=== PATIENT | male | born 1950 | race Caucasian/White ===

== ENCOUNTER 2019-02-02 08:45 | Outpatient (CLI) | payer MEDICARE, OTHER | END 2019-02-02 08:46 | disposition critical access hospital (66) | LOC: EMS 08:45 | PROVIDERS: ATTEND Surgery | DX: R61 Generalized hyperhidrosis (principal); R53.1 Weakness; R47.9 Unspecified speech disturbances | CPT/HCPCS: A0425; A0427 ==

== ENCOUNTER 2019-02-02 09:04 | Observation (INO) | payer MEDICARE, OTHER ==
--- NOTE | 2019-02-02 09:27 | CT Report ---
Reason: acute confusion, with weakness Procedure Date: 02/02/2019 Accession Number: [id number] / [id number] Procedure: CT - Head W/O Stroke Protocol CPT Code: FULL RESULT: EXAM: CT HEAD EXAM DATE: 02/02/2019 09:18 AM. CLINICAL HISTORY: Acute confusion, with weakness. COMPARISON: None. TECHNIQUE: Multiaxial CT images were obtained from the foramen magnum to the vertex. Reformats: Sagittal and coronal. IV contrast: None. In accordance with CT protocol optimization, one or more of the following dose reduction techniques were utilized for this exam: automated exposure control, adjustment of mA and/or KV based on patient size, or use of iterative reconstructive technique. FINDINGS: Parenchyma: No intraparenchymal hemorrhage. No evidence of mass, midline shift, or CT findings of acute infarction. Kunz-white differentiation is distinct. Extraaxial Spaces: Normal for age. No subdural or epidural collections identified. Ventricles: Normal in size and position. Sinuses and Orbits: Imaged paranasal sinuses, orbits, and mastoids show no significant abnormality. Bones: No evidence of fracture or calvarial defect. Other: None. IMPRESSION: No intracranial hemorrhage. ASPECTS 10 RADIA The critical test notification system was initiated by Dr. Mikhail Maya at 09:25 AM on 02/02/2019. The above critical test findings were discussed with Roosevelt Vidal by Dr. Mikhail Maya at 09:30 AM on 02/02/2019.
--- NOTE | 2019-02-02 09:28 | ED Physician Documentation ---
PD HPI FOCAL NEURO - Stated complaint Stated Complaint: CVA - Chief complaint Chief Complaint: Neuro - Additional information Additional information: 5-year-old male was brought to the emergency department for evaluation of a unresponsive episode and inability to speak. The patient was last seen normal at 7 AM by his . The patient's went to take a shower and when she came out of the shower found the patient unresponsive, globally weak and unable to speak and diaphoretic. The history the patient is limited secondary to the acute presentation and inability to speak. The patient is following simple commands. EMS did find the patient to have a blood sugar of 40 and was given an amp of D50. The patient's blood sugar now is in the 200s. Review of Systems Unable to obtain: Confused PD PAST MEDICAL HISTORY - Present Medications Home Medications: Ambulatory Orders Medication Instructions Recorded Confirmed Hydroxychloroquine [Plaquenil] 200 mg PO DAILY 02/02/19 02/02/19 Metoprolol Succinate 50 mg PO DAILY 02/02/19 02/02/19 dilTIAZem HCl [Diltiazem 24Hr Cd] 240 mg PO DAILY 02/02/19 02/02/19 hydroCHLOROthiazide [Hydrodiuril] 12.5 mg PO DAILY 02/02/19 02/02/19 - Allergies Allergies/Adverse Reactions: Allergies Allergy/AdvReac Type Severity Reaction Status Date / Time Unable to Assess Allergy Verified 02/02/19 09:21 PD ED PE NORMAL - General General: Other (The patient appears alert, follows very simple commands and moves all 4 extremities, But is significantly confused and altered) - HEENT HEENT: Atraumatic, PERRL, EOMI, Ears normal, Moist mucous membranes - Cardiac Cardiac: RRR, Strong equal pulses - Respiratory Respiratory: No respiratory distress - Abdomen Abdomen: Soft, Non tender - Back Back: No CVA TTP - Derm Derm: Normal color - Extremities Extremities: No deformity - Neuro Neuro: Other (The patient's alert, follows very simple commands but gets significantly confused and has trouble following any multistep command. The patient is nonverbal on initial assessment. The patient is weak in the global upper and lower extremities. No focal area of deficit. The face is symmetric and tongue is midline) Results - Vitals Vitals: Vital Signs - 24 hr 02/02/19 02/02/19 02/02/19 09:05 09:18 09:30 Temperature Heart Rate 52 L 55 L 51 L Respiratory 16 16 16 Rate Blood Pressure 152/94 H 154/82 H 150/80 H O2 Saturation 99 98 98 02/02/19 02/02/19 02/02/19 09:45 10:00 10:13 Temperature 35.9 C L Heart Rate 55 L 52 L 56 L Respiratory 16 16 12 Rate Blood Pressure 157/82 H 162/90 H 162/91 H O2 Saturation 100 99 100 02/02/19 02/02/19 02/02/19 10:37 11:58 13:07 Temperature 36.2 C L 36.4 C L Heart Rate 65 71 Respiratory 16 16 16 Rate Blood Pressure 158/99 H 143/120 H 157/96 H O2 Saturation 100 100 Oxygen O2 Source Room air - EKG (time done) 09:22 Rate: Rate (enter#) Rhythm: Sinus bradycardia Intervals: Normal IL, QRS normal QRS: Normal Ischemia: Non specific changes - Labs Labs: Laboratory Tests 02/02/19 02/02/19 02/02/19 09:20 09:25 09:25 WBC 10.6 RBC 4.32 L Hgb 14.8 Hct 42.0 MCV 97.3 H MCH 34.2 H MCHC 35.2 RDW 13.2 Plt Count 260 MPV 6.0 L Neut # (Auto) 9.5 H Lymph # (Auto) 0.4 L [place] # (Auto) 0.5 Eos # (Auto) 0.1 Baso # (Auto) 0.1 Absolute Nucleated RBC 0.00 Nucleated RBC % 0.0 PT 12.9 H INR 1.2 APTT 32.2 VBG pH VBG pCO2 VBG pO2 VBG HCO3 VBG Total CO2 VBG O2 Saturation VBG Base Excess VBG Total Hgb VBG Oxyhemoglobin VBG Carboxyhemoglobin VBG Methemoglobin Sodium Potassium Chloride Carbon Dioxide Anion Gap BUN Creatinine Estimated GFR (MDRD) Glucose POC Whole Bld Glucose 165 H Calcium Magnesium Total Bilirubin AST ALT Alkaline Phosphatase Ammonia Total Creatine Kinase Troponin I Total Protein Albumin Globulin Albumin/Globulin Ratio Lipase TSH Salicylates Acetaminophen Ethyl Alcohol 02/02/19 02/02/19 02/02/19 09:25 09:25 09:25 WBC RBC Hgb Hct MCV MCH MCHC RDW Plt Count MPV Neut # (Auto) Lymph # (Auto) [place] # (Auto) Eos # (Auto) Baso # (Auto) Absolute Nucleated RBC Nucleated RBC % PT INR APTT VBG pH VBG pCO2 VBG pO2 VBG HCO3 VBG Total CO2 VBG O2 Saturation VBG Base Excess VBG Total Hgb VBG Oxyhemoglobin VBG Carboxyhemoglobin VBG Methemoglobin Sodium 126 L Potassium 3.8 Chloride 87 L Carbon Dioxide 22 Anion Gap 17.0 H BUN 9 Creatinine 0.8 Estimated GFR (MDRD) 96 Glucose 182 H POC Whole Bld Glucose Calcium 8.6 Magnesium Total Bilirubin 1.3 H AST 32 ALT 16 Alkaline Phosphatase 61 Ammonia Total Creatine Kinase 94 Troponin I < 0.04 Total Protein 7.0 Albumin 4.0 Globulin 3.0 Albumin/Globulin Ratio 1.3 Lipase 23 TSH 1.19 Salicylates < 6.0 Acetaminophen < 10 L Ethyl Alcohol 92.1 02/02/19 02/02/19 02/02/19 09:25 09:25 09:25 WBC RBC Hgb Hct MCV MCH MCHC RDW Plt Count MPV Neut # (Auto) Lymph # (Auto) [place] # (Auto) Eos # (Auto) Baso # (Auto) Absolute Nucleated RBC Nucleated RBC % PT INR APTT VBG pH VBG pCO2 VBG pO2 VBG HCO3 VBG Total CO2 VBG O2 Saturation VBG Base Excess VBG Total Hgb 15.5 VBG Oxyhemoglobin 79 L VBG Carboxyhemoglobin 2.0 H VBG Methemoglobin 0.3 Sodium Potassium Chloride Carbon Dioxide Anion Gap BUN Creatinine Estimated GFR (MDRD) Glucose POC Whole Bld Glucose Calcium Magnesium 2.4 Total Bilirubin AST ALT Alkaline Phosphatase Ammonia < 10.0 Total Creatine Kinase Troponin I Total Protein Albumin Globulin Albumin/Globulin Ratio Lipase TSH Salicylates Acetaminophen Ethyl Alcohol 02/02/19 10:50 WBC RBC Hgb Hct MCV MCH MCHC RDW Plt Count MPV Neut # (Auto) Lymph # (Auto) [place] # (Auto) Eos # (Auto) Baso # (Auto) Absolute Nucleated RBC Nucleated RBC % PT INR APTT VBG pH 7.347 VBG pCO2 36.1 L VBG pO2 60.3 H VBG HCO3 19.3 L VBG Total CO2 20.5 L VBG O2 Saturation 88.8 H VBG Base Excess -5.5 L VBG Total Hgb VBG Oxyhemoglobin VBG Carboxyhemoglobin VBG Methemoglobin Sodium Potassium Chloride Carbon Dioxide Anion Gap BUN Creatinine Estimated GFR (MDRD) Glucose POC Whole Bld Glucose Calcium Magnesium Total Bilirubin AST ALT Alkaline Phosphatase Ammonia Total Creatine Kinase Troponin I Total Protein Albumin Globulin Albumin/Globulin Ratio Lipase TSH Salicylates Acetaminophen Ethyl Alcohol - Rads (name of study) CTA head/neck Radiology: Final report received, See rad report (no acute Findings, 30% ICA stenosis) PD MEDICAL DECISION MAKING - ED course ED course: EMS activated a stroke alert. The patient was taken directly to CT scan which showed no significant findings. I discussed the case with the on-call stroke neurologist at [facility] who does not feel that this meets criteria for TPA. He thinks that this may be rate related to a metabolic issue or prolonged hypoglycemia and possibly related to the patient's alcoholism. The patient was observed in the emergency department and returned to his neurologic baseline. Given the acuity of his symptoms and his metabolic abnormalities and the acuity of presentation he will require admission to the hospital for further workup and management of his symptoms. The plan was discussed with the family who understands and agrees to the plan. The case was discussed with the hospitalist Dr. Hyatt who accepts the patient onto his service Departure - Departure Disposition: ED Place in Observation Clinical Impression: Acute confusional state, Hyponatremia, Hypoglycemia, Alcoholic ketosis Alcohol dependence Qualifiers: Substance use status: unspecified alcohol-induced disorder Qualified Code(s): F10.29 - Alcohol dependence with unspecified alcohol-induced disorder
[2019-02-02 09:45] LABS: BASOPHILS # (AUTO) 0.1 10^3/uL (0.0-0.1); BASOPHILS % (AUTO) 0.5 %; EOSINOPHILS # (AUTO) 0.1 10^3/uL (0.0-0.7); HGB - HEMOGLOBIN 14.8 g/dL (14.0-18.0); LYMPHOCYTES # (AUTO) 0.4 10^3/uL (1.5-3.5); LYMPHOCYTES % (AUTO) 3.4 %; MEAN CORPUSCULAR HEMOGLOBIN 34.2 pg (27.0-31.0); MEAN CORPUSCULAR HGB CONC 35.2 g/dL (32.0-36.0); MEAN CORPUSCULAR VOLUME 97.3 fL (80.0-94.0); MONOCYTES # (AUTO) 0.5 10^3/uL (0.0-1.0); MONOCYTES % (AUTO) 5.1 %; NEUTROPHILS # (AUTO) 9.5 10^3/uL (1.5-6.6); PLT - PLATELET COUNT 260 10^3/uL (130-450); RED BLOOD COUNT 4.32 10^6/uL (4.70-6.10); RED CELL DISTRIBUTION WIDTH 13.2 % (12.0-15.0); WHITE BLOOD COUNT 10.6 x10^3/uL (4.8-10.8)
[2019-02-02 09:49] LABS: INR 1.2 (0.8-1.2); PT - PROTHROMBIN TIME 12.9 secs (9.9-12.6)
[2019-02-02 09:53] LABS: ACETAMINOPHEN < 10 ug/mL (10-30); ALBUMIN/GLOBULIN RATIO 1.3 (1.0-2.2); ALKALINE PHOSPHATASE 61 IU/L (42-121); ALT ALANINE AMINOTRANSFERASE 16 IU/L (10-60); AST ASPARTATE AMINOTRANSFERASE 32 IU/L (10-42); BILIRUBIN,TOTAL 1.3 mg/dL (0.2-1.0); BUN - BLOOD UREA NITROGEN 9 mg/dL (6-20); CALCIUM 8.6 mg/dL (8.5-10.3); CARBON DIOXIDE - CO2 22 mmol/L (21-32); CHLORIDE 87 mmol/L (101-111); CK- CREATINE KINASE 94 IU/L (22-269); CREATININE 0.8 mg/dL (0.6-1.2); GFR - MDRD 96 (>89); GLUCOSE 182 mg/dL (70-100); LIPASE 23 U/L (22-51); SALICYLATE < 6.0 mg/dL; SODIUM 126 mmol/L (135-145)
[2019-02-02 10:00] LABS: PARTIAL THROMBOPLASTIN TIME 32.2 secs (24.9-33.3)
[2019-02-02] MEDS ORDERED: FOLIC ACID INJ 1 MG in SODIUM CHLORIDE 0.9% 1,000 ML IV STA (10:08)
[2019-02-02] MEDS ORDERED: THIAMINE INJ 100 MG in SODIUM CHLORIDE 0.9% 50 ML IV STA (10:08)
[2019-02-02] MEDS ORDERED: IOVERSOL 320 100 ML VIAL IVP ONE ×3 (10:13→13:46)
--- NOTE | 2019-02-02 10:51 | XRAY Report ---
Reason: chest pain Procedure Date: 02/02/2019 Accession Number: [id number] / [id number] Procedure: XR - Chest 1 View X-Ray CPT Code: 12444 FULL RESULT: EXAM: CHEST RADIOGRAPHY EXAM DATE: 02/02/2019 09:50 AM. CLINICAL HISTORY: Chest pain. COMPARISON: None. TECHNIQUE: 1 view. FINDINGS: Lungs/Pleura: Question focal airspace opacity in the left midlung versus exacerbated pulmonary markings in the setting of low lung volumes and rotated AP portable technique. No pleural effusion. No pneumothorax. Low lung volumes. Mediastinum: Apparent cardiomegaly is likely exacerbated by low lung volumes and AP portable supine technique. Other: None. IMPRESSION: Recommend formal PA and lateral radiographs to clarify the questionable opacity in the left midlung. RADIA
[2019-02-02 11:01] LABS: VBG PH 7.347 (7.31-7.41)
[2019-02-02 11:02] LABS: VBG BASE EXCESS -5.5 mmol/L (-2 - +2); VBG PCO2 36.1 mmHg (41-51); VBG PO2 60.3 mmHg (25-47); VBG TOTAL CO2 20.5 mmol/L (24-29)
--- NOTE | 2019-02-02 11:06 | CT Report ---
Reason: Acute confusional state, nonverbal Procedure Date: 02/02/2019 Accession Number: [id number] / [id number] Procedure: CT - ANGIO NECK W/WO CPT Code: FULL RESULT: EXAM: CT ANGIOGRAM NECK EXAM DATE: 02/02/2019 10:36 AM. CLINICAL HISTORY: Acute confusional state, nonverbal. COMPARISON: No prior neck CTA. TECHNIQUE: Routine axial helical imaging was performed from the skull base through the aortic arch. Reconstructions: Routine multiplanar 3D MIP reconstructions. IV Contrast: 80 mL Optiray 320. Evaluation of arterial stenosis is based on a NASCET method of measurement. In accordance with CT protocol optimization, one or more of the following dose reduction techniques were utilized for this exam: automated exposure control, adjustment of mA and/or KV based on patient size, or use of iterative reconstructive technique. FINDINGS: Dense calcification of the left cervical carotid bifurcation. Proximal left cervical ICA stenosis measures up to 30%. No acute abnormality or significant stenosis of the right cervical carotid artery, negligible atherosclerotic changes. No acute abnormality or significant stenosis of the cervical vertebral arteries. IMPRESSION: 1. No acute abnormality or significant stenosis of the cervical vertebral or right cervical carotid arteries. 2. Dense chronic-appearing atherosclerotic calcification of the left cervical carotid bifurcation associated with up to 30% stenosis of the proximal left ICA. RADIA
--- NOTE | 2019-02-02 11:15 | CT Report ---
Reason: Acute confusional state, nonverbal Procedure Date: 02/02/2019 Accession Number: [id number] / [id number] Procedure: CT - ANGIO HEAD W CPT Code: FULL RESULT: EXAM: CT ANGIOGRAM HEAD. CT SCAN OF THE HEAD WITH CONTRAST. EXAM DATE: 02/02/2019 10:36 AM CLINICAL HISTORY: Acute confusional state, nonverbal. COMPARISON: No prior head CTA. TECHNIQUE: - CT Scan Head: Using a multidetector scanner, axial images were acquired from the foramen magnum to the skull vertex following contrast administration. - CT Angiogram: Using a multidetector scanner, high-resolution axial images were acquired from the skull base through vertex following rapid infusion of intravenous contrast. Reformats: Multiplanar MIP reformats were reconstructed. Nascet criteria used for stenosis measurement. IV Contrast: Optiray 320 80mL. In accordance with CT protocol optimization, one or more of the following dose reduction techniques were utilized for this exam: automated exposure control, adjustment of mA and/or KV based on patient size, or use of iterative reconstructive technique. FINDINGS: Brain CT with IV contrast: No abnormal enhancement. Head CT angiogram: No intracranial vertebrobasilar insufficiency. Patent well-developed right posterior communicating artery with a relatively small right [employer] P1 segment. The distal internal carotid arteries are patent. No proximal intracranial large artery flow-limiting stenosis, occlusion or filling defect including the anterior, middle and posterior cerebral arteries. No evidence for aneurysm of the [place]. No evidence for major dural venous sinus thrombus. IMPRESSION: 1. No abnormal brain enhancement. 2. No intracranial large artery occlusion or flow-limiting stenosis. 3. These findings do not preclude the possibility of small acute ischemic infarct. RADIA
--- NOTE | 2019-02-02 13:21 | HISTORY & PHYSICAL EXAMINATION ---
Chief Complaint - Chief Complaint Chief Complaint: Strokelike symptoms. Patient felt palpitations witnessed syncope by . Stroke/TIA/Neuro Template - Admitted From Admitted from: ED - History Obtained From Records Reviewed: RN notes reviewed History obtained from: Patient, Family, Friend Exam limitations: No limitations - History of Present Illness Problem Location Description: Neurologic Severity at the worst: reports: Mild HPI Comment/Other: This is a 68-year-old with history of hypertension, chronic alcohol use, multiple abdominal surgeries with 80% of gastric resection per history, vitamin B12 deficiency, chronic nicotine dependence on chewing tobacco who presents with an episode of witnessed syncope by where patient was on a recliner and was unresponsive unable to speak. Upon further evaluation patient was found to have low sugars in the 40s and was able to follow basic commands as per ED staff. Patient has had similar events in the past with history of palpitations and syncopal events. Patient was worked up at [facility] and was not found to have any cardiological explanation to his prior symptomatology of palpitations tachycardia plus or minus syncope. Patient's states that he has poor appetite and and is unable to take more than 50% of his diet. Patient takes supplementation for vitamin D as patient states that he has poor absorption through his stomach through multiple abdominal surgeries. Patient drinks 12 packs of beer per day and admits to increase fluid intake in the form of ice tea and water. Patient was found to have a sodium of 126 with a chloride of 87 normal CBC with creatinine 0.8 normal LFTs with a T bili of 1.3 slightly hyper glycemic after given amps of dextrose. Patient's VBG showed a initial pH of 7.347 with a PCO2 of 36.1 and a bicarb 19.3. Alcohol level was 92.1 with ammonia of less than 10.0 salicylic acid less than 6.0 and acetaminophen level less than 10. EKG showed sinus bradycardia at 52 bpm abnormal R wave progression and borderline prolonged QT. Troponin was unremarkable. CT of the head showed no acute intracranial process along with CTA of the head and neck showing a left internal carotid artery 30% stenosis with no other abnormalities. Meds/Allgy - Home Medications Home Medications: Ambulatory Orders Medication Instructions Recorded Confirmed Ascorbic Acid 1,000 mg PO DAILY 02/02/19 02/02/19 Calcium Carbonate [[id number]] 1,000 mg PO DAILY 02/02/19 02/02/19 Cholecalciferol (Vitamin D3) 2,000 unit PO DAILY 02/02/19 02/02/19 [Vitamin D] Folic Acid 0.8 mg PO DAILY 02/02/19 02/02/19 Hydroxychloroquine [Plaquenil] 200 mg PO DAILY 02/02/19 02/02/19 Magnesium Oxide [Mag Ox] 400 mg PO 0800 02/02/19 02/02/19 Metoprolol Succinate 50 mg PO DAILY 02/02/19 02/02/19 Multivit-Min/FA/Lycopen/Lutein 1 each PO DAILY 02/02/19 02/02/19 [Centrum Silver Men Tablet] Potassium Gluconate 594 mg PO DAILY 02/02/19 02/02/19 Triamcinolone 0.1% Oint [Kenalog 1 applic TOP BID 02/02/19 02/02/19 0.1% Oint] dilTIAZem HCl [Diltiazem 24Hr Cd] 240 mg PO DAILY 02/02/19 02/02/19 hydroCHLOROthiazide [Hydrodiuril] 12.5 mg PO DAILY 02/02/19 02/02/19 - Allergies Allergies/Adverse Reactions: Allergies Allergy/AdvReac Type Severity Reaction Status Date / Time Unable to Assess Allergy Verified 02/02/19 09:21 Review of Systems - Constitutional Constitutional: reports: Poor appetite, Diaphoresis. denies: Fever, Chills - Ears, Nose & Throat Ears, Nose & Throat: denies: Vertigo - Cardiovascular Cariovascular: reports: Palpitations, Syncope. denies: Chest pain - Respiratory Respiratory: denies: Wheezing, Snoring, SOB at rest, SOB with exertion - Gastrointestinal Gastrointestinal: denies: Abdominal pain, Abdominal distention, Constipation, Diarrhea - Genitourinary Genitourinary: denies: Dysuria, Flank pain - Musculoskeletal Musculoskeletal: denies: Muscle pain, Back pain - Integumentary Integumentary: denies: Rash, Lesions - Neurological Neurological: denies: Focal weakness, Headache, Numbness, Abnormal gait, Seizures - Psychiatric Psychiatric: denies: Depression, Anxiety, Suicidal - Endocrine Endocrine: reports: Polyuria, Polydypsia, Polyphagia - All Other Systems All Other Systems: reports: Reviewed and negative Prior Level of Functionality: Patient is independent and with home ADLs Exam - Vital Signs Reviewed Vital Signs: Yes Vital Signs: Vital Signs x48h Temp Pulse Resp BP Pulse Ox 02/02/19 13:07 36.4 C L 71 16 157/96 H 100 02/02/19 11:58 36.2 C L 65 16 143/120 H 100 02/02/19 10:37 16 158/99 H 02/02/19 10:13 35.9 C L 56 L 12 162/91 H 100 02/02/19 10:00 52 L 16 162/90 H 99 02/02/19 09:45 55 L 16 157/82 H 100 02/02/19 09:30 51 L 16 150/80 H 98 02/02/19 09:18 55 L 16 154/82 H 98 02/02/19 09:05 52 L 16 152/94 H 99 - Physical Exam General Appearance: positive: No acute distress, Alert, Other (Patient is pleasant cooperative with mild weakness) Eyes Bilateral: positive: Normal inspection, PERRL, EOMI, Conjunctivae nml ENT: positive: Pharynx nml, Dry mucous membranes Neck: positive: Nml inspection, Thyroid nml, No JVD, Trachea midline. negative: Thyromegaly Respiratory: positive: Chest non-tender, No respiratory distress, Breath sounds nml Cardiovascular: positive: Regular rate & rhythm, No murmur, No gallop. negative: Tachycardia, JVD present, Systolic murmur, Diastolic murmur, Gallop/S3 Peripheral Pulses: positive: 2+ Abdomen: positive: Non-tender, No organomegaly, Nml bowel sounds, No distention. negative: Tenderness Back: positive: Nml inspection Skin: positive: Color nml, No rash, Warm Extremities: positive: Non-tender, Full ROM, Nml appearance Neurologic/Psychiatric: positive: Oriented x3, CN's nml (2-12), Mood/affect nml. negative: Facial droop, Slurred/abnml speech, Depressed mood/affect Reflexes: Bicep (R): 2+, Bicep (L): 2+, Knee (R): 2+, Knee (L): 2+, Ankle (R): 2+, Ankle (L): 2+ Babinski Reflex: Right: Absent, Left: Absent Comments/Other: Patient does not have any sensory motor deficits. Unable to assess gait. Negative Brudzinski sign, Romberg sign unremarkable per Results - Lab Results Lab results reviewed: Yes Fish Bones: 02/02/19 09:25 02/02/19 09:25 Other Lab Results: Lab Results x24hrs 02/02/19 02/02/19 02/02/19 Range/Units 10:50 09:25 09:25 WBC (4.8-10.8) x10^3/uL RBC (4.70-6.10) 10^6/uL Hgb (14.0-18.0) g/dL Hct (42.0-52.0) % MCV (80.0-94.0) fL MCH (27.0-31.0) pg MCHC (32.0-36.0) g/dL RDW (12.0-15.0) % Plt Count (130-450) 10^3/uL MPV (7.4-11.4) fL Neut # (Auto) (1.5-6.6) 10^3/uL Lymph # (Auto) (1.5-3.5) 10^3/uL [place] # (Auto) (0.0-1.0) 10^3/uL Eos # (Auto) (0.0-0.7) 10^3/uL Baso # (Auto) (0.0-0.1) 10^3/uL Absolute Nucleated RBC x10^3/uL Nucleated RBC % /100WBC PT (9.9-12.6) secs INR (0.8-1.2) APTT (24.9-33.3) secs VBG pH 7.347 (7.31-7.41) VBG pCO2 36.1 L (41-51) mmHg VBG pO2 60.3 H (25-47) mmHg VBG HCO3 19.3 L (23-28) mmol/L VBG Total CO2 20.5 L (24-29) mmol/L VBG O2 Saturation 88.8 H (60-80) % VBG Base Excess -5.5 L (-2 - +2) mmol/L VBG Total Hgb 15.5 (12.0-18.0) g/dL VBG Oxyhemoglobin 79 L (94-100) % VBG Carboxyhemoglobin 2.0 H (0-1.5) % VBG Methemoglobin 0.3 (0-1.5) % Sodium (135-145) mmol/L Potassium (3.5-5.0) mmol/L Chloride (101-111) mmol/L Carbon Dioxide (21-32) mmol/L Anion Gap (6-13) BUN (6-20) mg/dL Creatinine (0.6-1.2) mg/dL Estimated GFR (MDRD) (>89) Glucose (70-100) mg/dL POC Whole Bld Glucose (70 - 100) mg/dL Calcium (8.5-10.3) mg/dL Total Bilirubin (0.2-1.0) mg/dL AST (10-42) IU/L ALT (10-60) IU/L Alkaline Phosphatase (42-121) IU/L Ammonia < 10.0 (7-35) umol/L Total Creatine Kinase (22-269) IU/L Troponin I (<0.49) ng/mL Total Protein (6.7-8.2) g/dL Albumin (3.2-5.5) g/dL Globulin (2.1-4.2) g/dL Albumin/Globulin Ratio (1.0-2.2) Lipase (22-51) U/L TSH (0.34-5.60) uIU/mL Salicylates mg/dL Acetaminophen (10-30) ug/mL Ethyl Alcohol mg/dL 02/02/19 02/02/19 02/02/19 Range/Units 09:25 09:25 09:25 WBC (4.8-10.8) x10^3/uL RBC (4.70-6.10) 10^6/uL Hgb (14.0-18.0) g/dL Hct (42.0-52.0) % MCV (80.0-94.0) fL MCH (27.0-31.0) pg MCHC (32.0-36.0) g/dL RDW (12.0-15.0) % Plt Count (130-450) 10^3/uL MPV (7.4-11.4) fL Neut # (Auto) (1.5-6.6) 10^3/uL Lymph # (Auto) (1.5-3.5) 10^3/uL [place] # (Auto) (0.0-1.0) 10^3/uL Eos # (Auto) (0.0-0.7) 10^3/uL Baso # (Auto) (0.0-0.1) 10^3/uL Absolute Nucleated RBC x10^3/uL Nucleated RBC % /100WBC PT (9.9-12.6) secs INR (0.8-1.2) APTT (24.9-33.3) secs VBG pH (7.31-7.41) VBG pCO2 (41-51) mmHg VBG pO2 (25-47) mmHg VBG HCO3 (23-28) mmol/L VBG Total CO2 (24-29) mmol/L VBG O2 Saturation (60-80) % VBG Base Excess (-2 - +2) mmol/L VBG Total Hgb (12.0-18.0) g/dL VBG Oxyhemoglobin (94-100) % VBG Carboxyhemoglobin (0-1.5) % VBG Methemoglobin (0-1.5) % Sodium 126 L (135-145) mmol/L Potassium 3.8 (3.5-5.0) mmol/L Chloride 87 L (101-111) mmol/L Carbon Dioxide 22 (21-32) mmol/L Anion Gap 17.0 H (6-13) BUN 9 (6-20) mg/dL Creatinine 0.8 (0.6-1.2) mg/dL Estimated GFR (MDRD) 96 (>89) Glucose 182 H (70-100) mg/dL POC Whole Bld Glucose (70 - 100) mg/dL Calcium 8.6 (8.5-10.3) mg/dL Total Bilirubin 1.3 H (0.2-1.0) mg/dL AST 32 (10-42) IU/L ALT 16 (10-60) IU/L Alkaline Phosphatase 61 (42-121) IU/L Ammonia (7-35) umol/L Total Creatine Kinase 94 (22-269) IU/L Troponin I < 0.04 (<0.49) ng/mL Total Protein 7.0 (6.7-8.2) g/dL Albumin 4.0 (3.2-5.5) g/dL Globulin 3.0 (2.1-4.2) g/dL Albumin/Globulin Ratio 1.3 (1.0-2.2) Lipase 23 (22-51) U/L TSH 1.19 (0.34-5.60) uIU/mL Salicylates < 6.0 mg/dL Acetaminophen < 10 L (10-30) ug/mL Ethyl Alcohol 92.1 mg/dL 02/02/19 02/02/19 02/02/19 Range/Units 09:25 09:25 09:20 WBC 10.6 (4.8-10.8) x10^3/uL RBC 4.32 L (4.70-6.10) 10^6/uL Hgb 14.8 (14.0-18.0) g/dL Hct 42.0 (42.0-52.0) % MCV 97.3 H (80.0-94.0) fL MCH 34.2 H (27.0-31.0) pg MCHC 35.2 (32.0-36.0) g/dL RDW 13.2 (12.0-15.0) % Plt Count 260 (130-450) 10^3/uL MPV 6.0 L (7.4-11.4) fL Neut # (Auto) 9.5 H (1.5-6.6) 10^3/uL Lymph # (Auto) 0.4 L (1.5-3.5) 10^3/uL [place] # (Auto) 0.5 (0.0-1.0) 10^3/uL Eos # (Auto) 0.1 (0.0-0.7) 10^3/uL Baso # (Auto) 0.1 (0.0-0.1) 10^3/uL Absolute Nucleated RBC 0.00 x10^3/uL Nucleated RBC % 0.0 /100WBC PT 12.9 H (9.9-12.6) secs INR 1.2 (0.8-1.2) APTT 32.2 (24.9-33.3) secs VBG pH (7.31-7.41) VBG pCO2 (41-51) mmHg VBG pO2 (25-47) mmHg VBG HCO3 (23-28) mmol/L VBG Total CO2 (24-29) mmol/L VBG O2 Saturation (60-80) % VBG Base Excess (-2 - +2) mmol/L VBG Total Hgb (12.0-18.0) g/dL VBG Oxyhemoglobin (94-100) % VBG Carboxyhemoglobin (0-1.5) % VBG Methemoglobin (0-1.5) % Sodium (135-145) mmol/L Potassium (3.5-5.0) mmol/L Chloride (101-111) mmol/L Carbon Dioxide (21-32) mmol/L Anion Gap (6-13) BUN (6-20) mg/dL Creatinine (0.6-1.2) mg/dL Estimated GFR (MDRD) (>89) Glucose (70-100) mg/dL POC Whole Bld Glucose 165 H (70 - 100) mg/dL Calcium (8.5-10.3) mg/dL Total Bilirubin (0.2-1.0) mg/dL AST (10-42) IU/L ALT (10-60) IU/L Alkaline Phosphatase (42-121) IU/L Ammonia (7-35) umol/L Total Creatine Kinase (22-269) IU/L Troponin I (<0.49) ng/mL Total Protein (6.7-8.2) g/dL Albumin (3.2-5.5) g/dL Globulin (2.1-4.2) g/dL Albumin/Globulin Ratio (1.0-2.2) Lipase (22-51) U/L TSH (0.34-5.60) uIU/mL Salicylates mg/dL Acetaminophen (10-30) ug/mL Ethyl Alcohol mg/dL - Diagnostic Imaging Results Diagnostic Imaging Results: positive: Final report reviewed (CT head, CT head and neck reviewed, EKG reviewed.) - EKG Results EKG Interpreted Independently: Yes EKG Comparison: positive: No prior EKG (Sinus bradycardia with poor R wave progression 52 bpm borderline prolonged QT) Impression/Plan - Problem List Problem List: Assessment: 1. Acute hypoglycemic induced encephalopathy 2. Questionable TIA 3. Diaphoresis with associated palpitations secondary to likely hypoglycemia 4. Chronic alcohol use/consumption without evidence of withdrawals 5. Decreased appetite/failure to thrive secondary to multiple abdominal surgeries and poor gastric absorption 6. Syncope with prior history of syncopal events secondary to likely hypoglycemia versus tachyarrhythmia/bradycardia arrhythmia unlikely 7. Hyponatremia/beer-[place] secondary to chronic alcohol consumption 8. FTT with poor appetite and anorexia 9. Advanced care planning education and counseling Plan: We will place patient in OBS/telemetry. Neurochecks every 4. We will place a 3 g sodium diet as patient has underlying hypertension, lipid panel fasting glucose along with cortisol level hemoglobin A1c TSH magnesium as well as a 2D echo to evaluate for structural heart disease in the setting of prior history of palpitations symptomatic with questionable tachyarrhythmia/bradycardia arrhythmias. EKG is abnormal with R wave progre ssion is poor with sinus bradycardia at 52 bpm and a border line prolonged QT. Alcohol level was slightly elevated however may be patient's baseline to chronic alcohol consumption. Will place on aspirin 81 mg p.o. daily along with possibly placing on atorvastatin if lipid panel shows hyperlipidemia. Patient did have hypochloremic hypotension along with T-bilirubin of 1.3. Bicarb of 19.3 as well as a PCO2 of 36.[address] of the head and CTA of the head and neck do not reveal any acute intracranial pathology and no evidence of critical artery stenosis. ECHO to follow. We will continue medical management. Patient had diltiazem and metoprolol on board and this could mask hypoglycemia these will be held for now. Unlikely that patient will need CIWA protocol as patient denies withdrawals after 1 week without drinking. Hyponatremia likely as a result of patient's chronic ingestion of beer with beer [place]. Will obtain folic acid and vitamin B12 levels. Continue with multivitamin regimen. Consider obtaining a C-peptide level for factitious hypoglycemia unlikely. Hemo globin A1c to follow. Patient would like to be a limited code with no heroic measures and would not like artificial support advance care planning education counseling with disease management symptom management as well as disease trajectory has been addressed with patient and . Initiate DVT/GI prophylaxis with H2 ranjit and DVT-Lovenox with SCDs CODE STATUS: Limited code Core Measures - Anticipated LOS I expect patient to be DC'd or transferred within 96 hours.: Yes - Issues Hospital Issues and Management Plan: Based on imaging studies we will decide on whether patient needs further workup however likely that patient has hypoglycemic induced encephalopathy and observation with telemetry is appropriate along with medical management per - DVT/VTE - Prophylaxis VTE/DVT Device ordered at admit?: Yes VTE/DVT Prophylaxis med ordered at admit?: Yes - Stroke - Rehab Assessment Rehab services assessment to be ordered?: No Not Ordered - Medical Reason: Not indicated - AMI - Statin at Admit Aspirin Prescribed on Admit: Yes
[2019-02-02] MEDS ORDERED: HYDROcod/ACETAM 5/325 MG TABLET PO PRN (13:42)
[2019-02-02] MEDS ORDERED: ONDANSETRON ODT 4 MG TABLET TL PRN (13:42)
[2019-02-02] MEDS ORDERED: SODIUM CHLORIDE FLUSH 0.9% 10 ML SYRINGE IVP PRN (13:42)
[2019-02-02 14:47] LABS: HB2 TOTAL 16.2 g/dL; HEMOGLOBIN A1C 0.51 g/dL
[2019-02-02 14:48] LABS: MUDS CUTOFF CONCENTRATIONS CUTOFF CONC BELOW:
[2019-02-02 14:53] LABS: BILIRUBIN,URINE NEGATIVE (NEGATIVE); GLUCOSE, URINE (UA) NEGATIVE (NEGATIVE); KETONES,URINE (UA) 40 mg/dL (NEGATIVE); LEUKOCYTE ESTERASE, URINE NEGATIVE (NEGATIVE); NITRITE,URINE NEGATIVE (NEGATIVE); OCCULT BLOOD,URINE NEGATIVE (NEGATIVE); PROTEIN,URINE NEGATIVE (NEGATIVE); UROBILINOGEN,URINE 0.2 (NORMAL) E.U./dL (NORMAL)
[2019-02-02 15:01] LABS: CLARITY,URINE CLEAR (CLEAR)
[2019-02-02 15:02] LABS: AMPHETAMINE SCREEN,URINE NEGATIVE (NEGATIVE); BENZODIAZEPINES SCREEN, URINE NEGATIVE (NEGATIVE); COCAINE SCREEN URINE NEGATIVE (NEGATIVE); METHADONE SCREEN, URINE NEGATIVE (NEGATIVE); METHAMPHETAMINES SCREEN, URINE NEGATIVE (NEGATIVE); OPIATE SCREEN, URINE NEGATIVE (NEGATIVE); OXYCODONE SCREEN, URINE NEGATIVE (NEGATIVE); PROPOXYPHENE SCREEN, URINE NEGATIVE (NEGATIVE); TRICYCLIC ANTIDEPRESSANT,URINE NEGATIVE (NEGATIVE)
[2019-02-02] MEDS: LACTATED RINGERS 1,000 ML IV SCH (16:49)
[2019-02-02] MEDS: SODIUM CHLORIDE FLUSH 0.9% 10 ML SYRINGE IVP SCH (16:53)
[2019-02-02] MEDS ORDERED: HYDROXYCHLOROQUINE 200 MG TABLET PO SCH (21:00)
[2019-02-02] MEDS: FAMOTIDINE 20 MG TABLET PO SCH (21:20)
[2019-02-02] MEDS: MULTIVITAMIN W/MINERALS TABLET PO SCH (21:21)
[2019-02-03] MEDS: SODIUM CHLORIDE FLUSH 0.9% 10 ML SYRINGE IVP SCH ×2 (00:18→10:39)
[2019-02-03] MEDS: LACTATED RINGERS 1,000 ML IV SCH (02:21)
[2019-02-03 06:23] LABS: BASOPHILS % (AUTO) 0.5 %; EOSINOPHILS # (AUTO) 0.1 10^3/uL (0.0-0.7); EOSINOPHILS % (AUTO) 1.5 %; HGB - HEMOGLOBIN 12.9 g/dL (14.0-18.0); LYMPHOCYTES # (AUTO) 0.4 10^3/uL (1.5-3.5); MEAN CORPUSCULAR HEMOGLOBIN 34.2 pg (27.0-31.0); MEAN CORPUSCULAR HGB CONC 34.9 g/dL (32.0-36.0); MEAN CORPUSCULAR VOLUME 98.3 fL (80.0-94.0); MEAN PLATELET VOLUME 5.8 fL (7.4-11.4); MONOCYTES # (AUTO) 0.8 10^3/uL (0.0-1.0); NEUTROPHILS # (AUTO) 4.6 10^3/uL (1.5-6.6); PLT - PLATELET COUNT 238 10^3/uL (130-450); RED BLOOD COUNT 3.77 10^6/uL (4.70-6.10); WHITE BLOOD COUNT 5.9 x10^3/uL (4.8-10.8)
[2019-02-03 06:39] LABS: ALBUMIN 3.5 g/dL (3.2-5.5); CALCIUM 8.1 mg/dL (8.5-10.3); CREATININE 0.6 mg/dL (0.6-1.2); PHOSPHORUS 2.6 mg/dL (2.5-4.6)
[2019-02-03 06:44] LABS: CHOL/HDL RATIO 1.7 (<5.0); CHOLESTEROL 166 mg/dL; HDL CHOLESTEROL 99 mg/dL
[2019-02-03 07:21] LABS: LDL CHOLESTEROL,DIRECT 63 mg/dL; LDLD/HDL RATIO 0.6 (<3.6)
--- NOTE | 2019-02-03 07:28 | DISCHARGE SUMMARY ---
"Discharge Summary Admit Date: 02/02/19 Discharge Date: 02/03/19 Discharging Provider: Dr. Hyatt Primary Care Provider: Alvin Dawn Code Status: Attempt Resuscitation Condition at Discharge: Good Discharge Disposition: 01 Home, Self Care - DIAGNOSES Admission Diagnoses: 1. Acute hypoglycemic induced encephalopathy 2. Questionable TIA 3. Diaphoresis with associated palpitations secondary to likely hypoglycemia 4. Chronic alcohol use/consumption without evidence of withdrawals 5. Decreased appetite/failure to thrive secondary to multiple abdominal surgeries and poor gastric absorption 6. Syncope with prior history of syncopal events secondary to likely hypoglycemia versus tachyarrhythmia/bradycardia arrhythmia unlikely 7. Hyponatremia/beer-[place] secondary to chronic alcohol consumption 8. FTT with poor appetite and anorexia 9. Chronic chewing tobacco/nicotine dependence 10. Advanced care planning education and counseling Discharge Diagnoses with Status of Each Condition: 1. Acute hypoglycemic induced encephalopathy 2. Questionable TIA 3. Diaphoresis with associated palpitations secondary to likely hypoglycemia 4. Chronic alcohol use/consumption without evidence of withdrawals 5. Decreased appetite/failure to thrive secondary to multiple abdominal surgeries and poor gastric absorption 6. Syncope with prior history of syncopal events secondary to likely hypoglycemia versus tachyarrhythmia/bradycardia arrhythmia unlikely 7. Hyponatremia/beer-[place] secondary to chronic alcohol consumption 8. FTT with poor appetite and anorexia 9. Chronic chewing tobacco/nicotine dependence 10. Advanced care planning education and counseling - HPI History of Present Illness: This is a 68-year-old with history of hypertension, chronic alcohol use, multi ple abdominal surgeries with 80% of gastric resection per history, vitamin B12 deficiency, chronic nicotine dependence on chewing tobacco who presents with an episode of witnessed syncope by where patient was on a recliner and was unresponsive unable to speak. Upon further evaluation patient was found to have low sugars in the 40s and was able to follow basic commands as per ED staff. Patient has had similar events in the past with history of palpitations and syncopal events. Patient was worked up at [facility] and was not found to have any cardiological explanation to his prior symptomatology of palpitations tachycardia plus or minus syncope. Patient's states that he has poor appetite and and is unable to take more than 50% of his diet. Patient takes supplementation for vitamin D as patient states that he has poor absorption through his stomach through multiple abdominal surgeries. Patient drinks 12 packs of beer per day and admits to increase fluid intake in the form of ice tea and water. Patient was found to have a sodium of 126 with a chloride of 87 normal CBC with creatinine 0.8 normal LFTs with a T bili of 1.3 slightly hyper glycemic after given amps of dextrose. Patient's VBG showed a initial pH of 7.347 with a PCO2 of 36.1 and a bicarb 19.3. Alcohol level was 92.1 with ammonia of less than 10.0 salicylic acid less than 6.0 and acetaminophen level less than 10. EKG showed sinus bradycardia at 52 bpm abnormal R wave progression and borderline prolonged QT. Troponin was unremarkable. CT of the head showed no acute intracranial process along with CTA of the head and neck showing a left internal carotid artery 30% stenosis with no other abnormalities. - CONSULTS | PROCEDURES Procedures: 02/02/19 2D echo shows ejection fraction 65-70% with grade 1 diastolic dysfunction. No structural or valvular heart disease. No visible motion wall abnormality. - HOSPITAL COURSE Hospital Course: Mr. Shan Pack was admitted for suspected TIA however upon review of medical records patient had hypoglycemia related to malabsorption of his GI from multiple abdominal surgeries and gastric resection which patient has been taking multivitamins as well as B12 for presumed deficiencies. Patient with a history of prior syncopes in the past presumedly from hypoglycemic encephalopathy which was similar in symptomatology on this admission. Patient had a unremarkable neuro imaging to include CTA head and neck as well as CT of the head which did not show any intracranial process. He did have a LICA of 30% stenosis without any visible aneurysms or abnormalities. His labs represented a chronic history of chronic alcohol consumption with be reported natalia and likely chronic hyponatremia without evidence of neurological complications or effects. Patient had mild hypokalemia which was replenished with KCL orally, and calcium channel ranjit diltiazem as well as his metoprolol for his high blood pressure were held due to the possibility of masking underlying hypoglycemia making his condition worse. Plaquenil has also been known to cause hypoglycemia along with blood dyscrasias as this was also being held. Lisinopril was used instead of metoprolol with the condition of his syncope essentially resolved. Orthostats were ordered. Patient's total cholesterol was 166 with a triglyceride 28 and LDL pending. Hemoglobin A1c was fair at 5.0% with impaired fasting glucose of a glucose of 180 in AM. Patient's workup consisted of of a 2D echo which showed ejection fraction 65-70% grade 1 diastolic dysfunction. On admission patient had an EKG of sinus bradycardia which showed poor R wave progression and borderline QT prolongation with unremarkable troponin. Upon discharge patient was hemodynamically stable without any recurrence of hypoglycemic encephalopath y. - ALLERGIES Allergies/Adverse Reactions: Allergies Allergy/AdvReac Type Severity Reaction Status Date / Time Unable to Assess Allergy Verified 02/02/19 09:21 - MEDICATIONS Home Medications: Ambulatory Orders Medication Instructions Recorded Confirmed Ascorbic Acid 1,000 mg PO DAILY 02/02/19 02/02/19 Calcium Carbonate [[id number]] 1,000 mg PO DAILY 02/02/19 02/02/19 Cholecalciferol (Vitamin D3) 2,000 unit PO DAILY 02/02/19 02/02/19 [Vitamin D3] Folic Acid 0.8 mg PO DAILY 02/02/19 02/02/19 Magnesium Oxide [Mag Ox] 400 mg PO 0800 02/02/19 02/02/19 Multivit-Min/FA/Lycopen/Lutein 1 each PO DAILY 02/02/19 02/02/19 [Centrum Silver Men Tablet] Potassium Gluconate 594 mg PO DAILY 02/02/19 02/02/19 Triamcinolone 0.1% Oint [Kenalog 1 applic TOP BID 02/02/19 02/02/19 0.1% Oint] dilTIAZem HCl [Diltiazem 24Hr Cd] 240 mg PO DAILY 02/02/19 02/02/19 hydroCHLOROthiazide [Hydrodiuril] 12.5 mg PO DAILY 02/02/19 02/02/19 Lactose-Reduced Food [Ensure 400 gm PO TID #1 tub 02/03/19 Original] Lisinopril [Zestril] 5 mg PO BID #60 tablet 02/03/19 - PHYSICAL EXAM AT DISCHARGE General Appearance: positive: No acute distress, Alert Eyes Bilateral: positive: Normal inspection, PERRL, EOMI ENT: positive: ENT inspection nml, Pharynx nml, No signs of dehydration Neck: positive: Nml inspection, Thyroid nml, No JVD, Trachea midline, Thyromegaly Respiratory: positive: Chest non-tender, No respiratory distress, Breath sounds nml Cardiovascular: positive: Regular rate & rhythm, No murmur, No gallop Peripheral Pulses: positive: 2+ Abdomen: positive: Non-tender, No organomegaly, Nml bowel sounds, No distention. negative: Tenderness Skin: positive: Color nml, No rash, Warm Extremities: positive: Non-tender, Full ROM, Nml appearance Neurologic/Psychiatric: positive: Oriented x3 - LABS Result Diagrams: 02/03/19 05:50 02/03/19 05:50 - FOLLOW UP Follow Up: To follow-up with his PCP Alvin Dawn in 1-2 weeks. - TIME SPENT Time Spent in Discharge (Minutes): 35"
--- NOTE | 2019-02-03 07:36 | Discharge Plan ---
Discharge Plan Disposition: 01 Home, Self Care Condition: Good Prescriptions: Lactose-Reduced Food [Ensure Original] 400 gm PO TID #1 tub Lisinopril [Zestril] 5 mg PO BID #60 tablet Diet: Low Sodium (Patient's spouse instructed on administering Ensure 3 times daily with meals to increase absorption of glucose per) Activity Restrictions: Activity as Tolerated Shower Restrictions: No Driving Restrictions: Yes Weight Bearing: Full Weight Instruction Topics: Hypoglycemia, Hyperglycemia, ED HTN Established Additional Instructions or Follow Up instructions: Patient has been instructed as well as spouse to increase absorption of glucose nutrients due to patient's prior abdominal surgeries that would prohibit such absorption and the cause of hypoglycemia likely as a result of malabsorption. Patient will be given prescription for Ensure original 3 times daily before meals with meals. In addition patient also been instructed to resume his hydrochlorothiazide along with diltiazem and will place on lisinopril 5 mg p.o. twice daily. Will hold off on Lopressor as well as Plaquenil as both of these have been known to cause hypoglycemia furthering patient's exacerbation of hypoglycemia. Patient has been instructed on alcohol cessation to minimize his chronic hyponatremia especially in the setting of him taking his thiazide diuretic. Patient has impaired fasting glucose and would be prudent to have a fasting repeat test as an outpatient as his hemoglobin A1c is 5.0%. Patient also instructed on chewing tobacco cessation education and counseling given. No Smoking: If you smoke, Please STOP! Call for help. Follow-up with: MD López,Nish Pyle MD [Primary Care Provider] - 2 Weeks
[2019-02-03] MEDS ORDERED: MAGNESIUM OXIDE 400 MG TABLET PO SCH (08:00)
[2019-02-03] MEDS ORDERED: POTASSIUM CHLORIDE 20 MEQ TABLET PO SCH (08:00)
[2019-02-03] MEDS: MULTIVITAMIN W/MINERALS TABLET PO SCH (08:26)
[2019-02-03] MEDS: FAMOTIDINE 20 MG TABLET PO SCH (08:27)
[2019-02-03 08:48] VITALS: BP 178/99
[2019-02-03] MEDS ORDERED: ENOXAPARIN 40 MG/0.4 ML SYRINGE SUBQ SCH (09:00)
[2019-02-03] MEDS ORDERED: LISINOPRIL 5 MG TABLET PO SCH (09:00)
[2019-02-03] MEDS ORDERED: CALCIUM CARB (OYSTER SHELL) 500 MG TABLET PO SCH (09:00)
[2019-02-03] MEDS ORDERED: FOLIC ACID 1 MG TABLET PO SCH (09:00)
[2019-02-03] MEDS ORDERED: ASCORBIC ACID CHEW 500 MG TABLET PO SCH (09:00)
[2019-02-03] MEDS ORDERED: POLYETHYLENE GLYCOL 3350 17 GM PACKET PO SCH (09:00)
[2019-02-03] MEDS ORDERED: CHOLECALCIFEROL 1,000 UNIT TABLET PO SCH (09:00)
[2019-02-03] MEDS ORDERED: diltiaZEM CD 240 MG CAPSULE PO SCH (09:00)
== END 2019-02-03 10:39 | disposition home or self-care (01) ==
LOC: ED 09:04 → OBS 13:42
PROVIDERS: ADMIT Family Medicine; ATTEND Family Medicine
DX: E16.2 Hypoglycemia, unspecified (principal); E87.1 Hypo-osmolality and hyponatremia; F10.29 Alcohol dependence with unspecified alcohol-induced disorder; Y90.4 Blood alcohol level of 80-99 mg/100 ml; E87.6 Hypokalemia; K91.2 Postsurgical malabsorption, not elsewhere classified; I11.9 Hypertensive heart disease without heart failure; R00.2 Palpitations; R00.1 Bradycardia, unspecified; F50.89 Other specified eating disorder; Z68.26 Body mass index [BMI] 26.0-26.9, adult; R62.7 Adult failure to thrive; E53.8 Deficiency of other specified B group vitamins; R55 Syncope and collapse; F17.220 Nicotine dependence, chewing tobacco, uncomplicated; R61 Generalized hyperhidrosis; Z90.3 Acquired absence of stomach [part of]
CPT/HCPCS: 36415; 70450; 70496; 70498; 71045; 80061; 80069; 81003; 82140; 82375; 82533; 82550; 82803; 83036; 83690; 83721; 83735; 84484; 85025; 85610; 85730; 93005; 93306; 96361; 96365; 96366; 96368; 96372; 99284; 99285; A9270; G0378; J1650; J7120; Q9967; 80053; 80306; 80307; 80320; 80329; 81001; 84443; 87086

== ENCOUNTER 2020-10-26 18:30 | Outpatient (CLI) | payer MEDICARE, OTHER | END 2020-10-26 18:31 | disposition critical access hospital (66) | LOC: EMS 18:30 | PROVIDERS: ATTEND Surgery | DX: R07.9 Chest pain, unspecified (principal); R11.2 Nausea with vomiting, unspecified | CPT/HCPCS: A0425; A0427 ==

== ENCOUNTER 2020-10-26 18:51 | Observation (INO) | payer MEDICARE, OTHER ==
[2020-10-26] MEDS ORDERED: ASPIRIN CHEW 81 MG TABLET PO STA (19:03)
[2020-10-26 19:33] LABS: BASOPHILS % (AUTO) 0.6 %; EOSINOPHILS # (AUTO) 0.1 10^3/uL (0.0-0.7); EOSINOPHILS % (AUTO) 1.7 %; HGB - HEMOGLOBIN 12.6 g/dL (14.0-18.0); LYMPHOCYTES # (AUTO) 0.8 10^3/uL (1.5-3.5); LYMPHOCYTES % (AUTO) 11.6 %; MEAN CORPUSCULAR HEMOGLOBIN 33.2 pg (27.0-31.0); MEAN CORPUSCULAR HGB CONC 35.3 g/dL (32.0-36.0); MEAN CORPUSCULAR VOLUME 94.2 fL (80.0-94.0); MEAN PLATELET VOLUME 7.5 fL (7.4-11.4); MONOCYTES # (AUTO) 1.1 10^3/uL (0.0-1.0); MONOCYTES % (AUTO) 15.5 %; NEUTROPHILS # (AUTO) 4.9 10^3/uL (1.5-6.6); PLT - PLATELET COUNT 219 10^3/uL (130-450); RED BLOOD COUNT 3.79 10^6/uL (4.70-6.10)
[2020-10-26 19:46] LABS: ALBUMIN/GLOBULIN RATIO 1.4 (1.0-2.2); BILIRUBIN,TOTAL 0.6 mg/dL (0.2-1.0); CALCIUM 8.8 mg/dL (8.5-10.3); CREATININE 0.9 mg/dL (0.6-1.2); TOTAL PROTEIN 6.8 g/dL (6.7-8.2)
--- NOTE | 2020-10-26 19:47 | ED Physician Documentation ---
PD HPI CHEST PAIN - Stated complaint Stated Complaint: CP - Chief complaint Chief Complaint: Cardiac - History obtained from History obtained from: Patient - History of Present Illness Timing - onset: Today Timing - onset during: Rest (watching TV) Timing - details: Abrupt onset (at 1730 dull - substernal pressure, no radiation) Quality: Pressure Location: Substernal Associated symptoms: Shortness of air, Nausea Review of Systems Ten Systems: 10 systems reviewed and negative Constitutional: denies: Fever, Chills Nose: reports: Reviewed and negative Throat: reports: Reviewed and negative Cardiac: reports: Palpitations (chronic) PD PAST MEDICAL HISTORY - Past Medical History Past Medical History: Yes Cardiovascular: Hypertension, Arrhythmia - Past Surgical History Past Surgical History: Yes General: Bowel surgery - Present Medications Home Medications: Ambulatory Orders Medication Instructions Recorded Confirmed Ascorbic Acid 1,000 mg PO DAILY 02/02/19 02/02/19 Calcium Carbonate [[id number]] 1,000 mg PO DAILY 02/02/19 02/02/19 Cholecalciferol (Vitamin D3) 2,000 unit PO DAILY 02/02/19 02/02/19 [Vitamin D3] Folic Acid 0.8 mg PO DAILY 02/02/19 02/02/19 Magnesium Oxide [Mag Ox] 400 mg PO 0800 02/02/19 02/02/19 Multivit-Min/FA/Lycopen/Lutein 1 each PO DAILY 02/02/19 02/02/19 [Centrum Silver Men Tablet] Potassium Gluconate 594 mg PO DAILY 02/02/19 02/02/19 Triamcinolone 0.1% Oint [Kenalog 1 applic TOP BID 02/02/19 02/02/19 0.1% Oint] dilTIAZem HCl [Diltiazem 24Hr ER 240 mg PO DAILY 02/02/19 02/02/19 (Cd)] hydroCHLOROthiazide [Hydrodiuril] 12.5 mg PO DAILY 02/02/19 02/02/19 Lactose-Reduced Food [Ensure 400 gm PO TID #1 tub 02/03/19 Original] lisinopriL [Zestril] 5 mg PO BID #60 tablet 02/03/19 - Allergies Allergies/Adverse Reactions: Allergies Allergy/AdvReac Type Severity Reaction Status Date / Time Unable to Assess Allergy Verified 02/02/19 09:21 - Social History Does the pt smoke?: No Smoking Status: Never smoker Does the pt drink ETOH?: Yes Does the pt have substance abuse?: No - Immunizations Immunizations are current?: Yes PD ED PE NORMAL - Vitals Vital signs reviewed: Yes - General General: Alert and oriented X 3, No acute distress - HEENT HEENT: Atraumatic, PERRL, EOMI - Neck Neck: Supple, no meningeal sign, No bony TTP - Cardiac Cardiac: RRR, No murmur - Respiratory Respiratory: No respiratory distress, Clear bilaterally - Abdomen Abdomen: Normal bowel sounds, Soft, Non tender - Back Back: No CVA TTP, No spinal TTP - Derm Derm: Normal color, Warm and dry - Extremities Extremities: No edema, No calf tenderness / cord - Neuro Neuro: Alert and oriented X 3, Normal speech Results - Vitals Vitals: Vital Signs - 24 hr 10/26/20 10/26/20 10/26/20 18:52 19:11 19:37 Temperature 36.6 C 36.6 C Heart Rate 64 64 68 Respiratory 16 16 18 Rate Blood Pressure 185/104 H 173/100 H 170/127 H O2 Saturation 97 97 100 10/26/20 10/26/20 10/26/20 19:59 20:30 21:00 Temperature 36.6 C 36.6 C 36.6 C Heart Rate 70 71 71 Respiratory 20 20 19 Rate Blood Pressure 168/98 H 162/95 H 176/97 H O2 Saturation 100 100 100 10/26/20 21:30 Temperature 36.6 C Heart Rate 72 Respiratory 20 Rate Blood Pressure 180/90 H O2 Saturation 100 Oxygen O2 Source Room air - EKG (time done) 1851 Rate: Rate (enter#) (64) Rhythm: NSR Oaks: Normal Intervals: Prolonged AK QRS: Normal, Low voltage Ischemia: Normal ST segments Computer interpretation: Agree with computer - Labs Labs: Laboratory Tests 10/26/20 10/26/20 10/26/20 19:28 19:28 19:28 WBC 7.0 RBC 3.79 L Hgb 12.6 L Hct 35.7 L MCV 94.2 H MCH 33.2 H MCHC 35.3 RDW 13.0 Plt Count 219 MPV 7.5 Neut # (Auto) 4.9 Lymph # (Auto) 0.8 L Bandera # (Auto) 1.1 H Eos # (Auto) 0.1 Baso # (Auto) 0.0 Absolute Nucleated RBC 0.00 Nucleated RBC % 0.0 Sodium 129 L Potassium 3.8 Chloride 92 L Carbon Dioxide 26 Anion Gap 11.0 BUN 11 Creatinine 0.9 Estimated GFR (MDRD) 83 L Glucose 107 H Calcium 8.8 Total Bilirubin 0.6 AST 22 ALT 16 Alkaline Phosphatase 55 Troponin I High Sens 4.7 Total Protein 6.8 Albumin 4.0 Globulin 2.8 Albumin/Globulin Ratio 1.4 Lipase 28 10/26/20 21:30 WBC RBC Hgb Hct MCV MCH MCHC RDW Plt Count MPV Neut # (Auto) Lymph # (Auto) Bandera # (Auto) Eos # (Auto) Baso # (Auto) Absolute Nucleated RBC Nucleated RBC % Sodium Potassium Chloride Carbon Dioxide Anion Gap BUN Creatinine Estimated GFR (MDRD) Glucose Calcium Total Bilirubin AST ALT Alkaline Phosphatase Troponin I High Sens 5.0 Total Protein Albumin Globulin Albumin/Globulin Ratio Lipase - Rads (name of study) 1v chest Radiology: EMP read contemporaneously (calcified pleural plaque, note made that the patient has known asbestosis.) PD MEDICAL DECISION MAKING - ED course ED course: around 530 developed substernal chest pressure and shortness of breath. Pain resolving in the ER. EKG nonischemic. Nothing in the history to suggest dissection or PE. Delta troponin negative in the department. Was getting ready to discharge him but he had recurrent substernal chest pressure. EKG repeated and nonischemic. Given the stuttering pain seems more appropriate to do a more formal rule out and Dr. Jacobs called for observation at 10:09 PM. Departure - Departure Disposition: ED Place in Observation Clinical Impression: Chest pain Qualifiers: Chest pain type: unspecified Qualified Code(s): R07.9 - Chest pain, unspecified Condition: Good Record reviewed to determine appropriate education?: Yes Instructions: ED Chest Pain NonCardiac Comments: If pain recurs please return for reevaluation. Follow-up with your doctor regardless and discuss stress testing on Wednesday.
--- NOTE | 2020-10-26 19:50 | XRAY Report ---
PROCEDURE: Chest 1 View X-Ray INDICATIONS: Chest Pain TECHNIQUE: One view of the chest was acquired. COMPARISON: 02/02/2019 FINDINGS: Surgical changes and devices: None. Lungs and pleura: No pleural effusions or pneumothorax. Lungs are clear. Probable calcified plaque, left midlung field. Left lung mass less likely, but possible. Mediastinum: Mediastinal contours appear normal. Heart size is normal. Bones and chest wall: No suspicious bony lesions. Overlying soft tissues appear unremarkable. IMPRESSION: Calcified left pleural plaque versus left lung mass. Recommend noncontrast CT chest. Reviewed by: Mukesh Gilbert MD on 10/26/2020 7:48 PM PST Approved by: Mukesh Gilbert MD on 10/26/2020 7:48 PM PST Station ID: [id number]
[2020-10-26] MEDS ORDERED: LIDOCAINE VISCOUS 2% 15 ML UDC MM STA (22:07)
[2020-10-26] MEDS ORDERED: MAG HYDROX/AL HYDROX/SIMETH 30 ML UDC PO STA (22:07)
[2020-10-26] MEDS ORDERED: ONDANSETRON 4 MG/2 ML VIAL IVP PRN (22:28)
[2020-10-26] MEDS ORDERED: oxyCODONE 5 MG TABLET PO PRN (22:28)
[2020-10-26] MEDS ORDERED: SODIUM CHLORIDE FLUSH 0.9% 10 ML SYRINGE IVP PRN (22:28)
[2020-10-26] MEDS ORDERED: ACETAMINOPHEN 325 MG TABLET PO PRN (22:28)
[2020-10-26] MEDS ORDERED: PROCHLORPERAZINE 10 MG/2 ML VIAL IVP PRN (22:28)
--- NOTE | 2020-10-26 22:34 | HISTORY & PHYSICAL EXAMINATION ---
Chief Complaint - Chief Complaint Chief Complaint: chest pain History of Present Illness - Admitted From Admitted From:: home via EMS - History Obtained From Records Reviewed: [facility] History obtained from: patient and Dr. Pugh Exam Limitations: none - History of Present Illness HPI Comment/Other: 70-year-old white male whose risk factors for cardiac disease include male sex, age, hypertension, and family hx of a brother who age 35 of [place] and dad age 67. He is not a diabetic, does not have high cholesterol, and does not smoke but does chew tobacco. He was watching TV tonight when he had an abrupt onset of dull substernal chest pressure that had no radiation. It caused him to be nauseated and short of breath. There is no jaw pain, , left arm pain with this. No diaphoresis. He has a history of intermittent chronic palpitations. Those were present today. The pain would increase with deep breath, and palpation of his chest wall. But those complaints are chronic. He has asbestosis and pleural plaquing and he has a constant pleuritic ache if he takes too deep of breath. It also hurts if you palpate his left chest wall too much. That is chronic as well. He has a long history of reflux disease. Happens almost on a daily basis due to his small stomach. He has to sleep with the head of his bed up. If he does not the reflux into the back of his throat and dyspepsia is ferocious.He has lived all over the [facility]. [place], [place], [place], [place], etc. When he was living in [place] he was in his 40s. At that time palpitations were present almost on a daily basis. They started a fter he had gastric surgery for his ulcer disease in his 30s. The first surgery resulted in a gastric resection. Second surgery with recurrence of ulcers resulted in a severe GI bleed. He had another gastric resection. Once that happened, he was having palpitations all the time. That resulted in the [place] evaluation where he had a coronary angiogram, Holter monitor, stress test. Everything was negative other than palpitations and they put him on Cardizem. He was hospitalized in January 2019 with syncope here at this hospital. He was found to have a glucose of 40. The patient and the doctor at that time figured out that his hypoglycemia may be inducing palpitations. His primary care pr ovider, Dr. Bhandari, did a Holter monitor. Nothing was found. Dr. Bhandari also tried to talk him into a treadmill test and he declined. Once the patient started eating small frequent meals on a regular basis, and no longer had hypoglycemia, he has not had any palpitations. He called an ambulance. He came to the emergency room and was evaluated by ER MD. He was afebrile at 36.6. Heart rate was 64. Blood pressure 185/104. O2 saturations 97. Over the course of his hours in the emergency room he remained hypertensive. The lowest he got was 162 systolic and 95 diastolic. Physical exam was negative. His EKG had sinus rhythm without any ST segment changes. Initial troponin was 4.7, and second troponin was 5.0. Emergency room physician was getting ready to send him home when the chest pressure and discomfort returned. As such the patient is being placed in observation for rule out [place]. History - Past Medical History Cardiovascular: reports: Hypertension, Arrhythmia (Previous history of syncope and palpitations as stated in HPI) Respiratory: reports: Other (Asbestosis with pleural plaquing on chest x-ray that is chronic, Pleuritic.) Neuro: reports: Other (Mild cognitive deficit of aging noted by himself) Endocrine/Autoimmune: reports: Other (Syncope in a reclining position and unresponsive, unable to speak January 2019. Due to hypoglycemia from not eating and drinking beer. Echocardiogram with EF 65-70%. Grade 1 diastolic dysfunc tion. No structural or valvular heart disease.) GI: reports: GERD, Other (80% gastric resection with multiple abdominal surgeries. Eats small meals and prefers liquids. ) : reports: Benign prostate hypertrophy (With urgency, frequency, decreased s tream) HEENT: reports: Chronic vision loss (With cataracts and eyeglasses) Psych: reports: None Musculoskeletal: reports: Osteoarthritis, Rheumatoid arthritis, Osteoporosis (From long-term steroid use. Gets yearly Reclast injections. Due for bone scan next week) MRSA Hx?: No - Past Surgical History General: reports: Bowel surgery - Family & Social History Family History Comment/Other: Mom at age 91 of old age. Dad dropdead of a massive heart attack age 67. 1 sister of complications of Parkinson's disease at age 67. 1 brother at age 35 of massive heart attack. 2 adopted children. 1 child that is healthy Living arrangement: At home Living Situation: With spouse/s.o. Social History Notes: Was drinking at 12 pack of beer in January 2019.He has cut back on that. He now drinks 30 beers in a little over a week. Has no history of withdrawal. Has been chewing tobacco since the age of 7. Has no intention of stopping. "You know what the definition of a levelheaded man is ? Will Danny said that if he chews tobacco, and it drips out of both sides of his mouth in the same way, that is a levelheaded man". to his third for over 30 years. Retired construction. 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 No history of recreational substance abuse.He has 1 child and 2 adopted children. They live in [place] and other [facility]. - Substance History Use: Uses substance without health or social issues: Tobacco Use Issues: Other (Risk of head and neck cancer, gastric cancer) Abuse: Recurrent use of substance despite neg consequences: Alcohol Abuse Issues: Other (Hypoglycemia) Dependence: Experiences withdrawal or developed tolerances: NONE Tobacco Details: Other (Chews tobacco) - POLST Patient has POLST: No POLST Status: Full Code Meds/Allgy - Home Medications Home Medications: Ambulatory Orders Medication Instructions Recorded Confirmed Ascorbic Acid 1,000 mg PO DAILY 02/02/19 02/02/19 Calcium Carbonate [[id number]] 1,000 mg PO DAILY 02/02/19 02/02/19 Cholecalciferol (Vitamin D3) 2,000 unit PO DAILY 02/02/19 02/02/19 [Vitamin D3] Folic Acid 0.8 mg PO DAILY 02/02/19 02/02/19 Magnesium Oxide [Mag Ox] 400 mg PO 0800 02/02/19 02/02/19 Multivit-Min/FA/Lycopen/Lutein 1 each PO DAILY 02/02/19 02/02/19 [Centrum Silver Men Tablet] Potassium Gluconate 594 mg PO DAILY 02/02/19 02/02/19 Triamcinolone 0.1% Oint [Kenalog 1 applic TOP BID 02/02/19 02/02/19 0.1% Oint] dilTIAZem HCl [Diltiazem 24Hr ER 240 mg PO DAILY 02/02/19 02/02/19 (Cd)] hydroCHLOROthiazide [Hydrodiuril] 12.5 mg PO DAILY 02/02/19 02/02/19 Lactose-Reduced Food [Ensure 400 gm PO TID #1 tub 02/03/19 Original] lisinopriL [Zestril] 5 mg PO BID #60 tablet 02/03/19 - Allergies Allergies/Adverse Reactions: Allergies Allergy/AdvReac Type Severity Reaction Status Date / Time Unable to Assess Allergy Verified 02/02/19 09:21 Review of Systems - Constitutional Constitutional: reports: Other (Weight is stable. Hypoglycemia is stable. As long as he eats small frequent meals every day. If he does not stick to his schedule, he will get hypoglycemic and lightheaded with palpitations.). denies: Fatigue, Fever, Chills, Malaise - Eyes Eyes: reports: Vision loss (Due to cataracts) - Ears, Nose & Throat Ears, Nose & Throat: reports: Hearing loss, Hearing aids (He forgot to bring them with him tonight so I am having to speak loudly). denies: Vertigo, Nasal pain, Nasal discharge, Nasal congestion, Dentures, Sore throat, Hoarseness - Cardiovascular Cariovascular: reports: Irregular heart rate, Palpitations, Chest pain, Exertional dyspnea (Chronic. [place] walks to the [place] and if he walks too fast he will get short of breath. That has been ongoing for years.), Decr. exercise tolerance (Gradually getting worse over the last few years. Attributes that to restrictive lung disease from his asbestosis and plaquing). denies: Edema, Lightheadedness, Orthopnea - Respiratory Respiratory: reports: Pleuritic pain. denies: Cough, Sputum production, Wheezing, Snoring, Orthopnea, SOB at rest - Gastrointestinal Gastrointestinal: reports: Diarrhea (Every morning), Nausea, Reflux/heartburn. denies: Abdominal pain, Abdominal distention, Constipation, Black stools, Bloody stools, Coffee grounds emesis - Genitourinary Genitourinary: reports: Frequency, Urgency, Nocturia. denies: Dysuria, Hematuria - Musculoskeletal Musculoskeletal: reports: Stiffness, Joint pain (Every day of his life. With rheumatoid arthritis he always feels constant hand pain, hip, knee, feet pain.), Joint swelling (Has come down substantially over the last 2 years but the still gets a little hot and swollen at times), Other (As long as he keeps on moving slowly, his hips and knees do not hurt very badly. But if he has to web machine tender line, he uses a cane, and his hips and knees will hurt tremendously when he stands for too long). denies: Muscle pain, Back pain, Muscle aches - Integumentary Integumentary: denies: Rash, Pruritis, Lesions, Dryness, Acne - Neurological Neurological: reports: Memory problems (As he has gotten older, he just does not drive in the cities anymore. He still drives in [place] but that is about it.), Other (Syncope with low blood sugar). denies: General weakness, Focal weakness, Headache, Dizziness, Seizures, Incoordination - Psychiatric Psychiatric: denies: Depression, Anxiety, Suicidal - Endocrine Endocrine: reports: Intolerance to cold. denies: Polyuria, Polydypsia, Polyphagia - Hematologic/Lymphatic Hematologic/Lymphatic: denies: Anemia, Bruising, Petechiae Prior Level of Functionality: He lives with his in their own home. Uses a cane if he is can to stand for too long. Does not use it for balance issues. Still drives a car infrequently and rarely. does most of the driving but she has multiple sclerosis so even she has to cut back. At this time he can bathe himself, feed himself, dress himself. Still helps with light canvas baster jumpbasting, still does some cooking with his . She pays most of the bills. Is just easier that way. But sometimes he does. Exam - Vital Signs Reviewed Vital Signs: Yes Vital Signs: Vital Signs x48h Temp Pulse Resp BP Pulse Ox 10/26/20 22:30 36.7 C 72 19 172/99 H 100 10/26/20 22:00 36.7 C 70 20 178/88 H 100 10/26/20 21:30 36.6 C 72 20 180/90 H 100 10/26/20 21:00 36.6 C 71 19 176/97 H 100 10/26/20 20:30 36.6 C 71 20 162/95 H 100 10/26/20 19:59 36.6 C 70 20 168/98 H 100 10/26/20 19:37 68 18 170/127 H 100 10/26/20 19:11 36.6 C 64 16 173/100 H 97 10/26/20 18:52 36.6 C 64 16 185/104 H 97 - Physical Exam General Appearance: positive: No acute distress, Alert, Other (Loud voice elderl y gentleman who looks older than his stated age, wearing glasses, bearded, male pattern baldness, deaf and I have to speak loudly back at him) Eyes Bilateral: positive: PERRL, EOMI ENT: positive: Pharynx nml, No signs of dehydration Neck: positive: No JVD. negative: Stiff neck, Carotid bruit Respiratory: positive: No respiratory distress, Other (Pain in the costochondral insertions into his sternum. With palpation. This is a sharp stabbing pain different than the substernal dull pain from tonight. He also has pleuritic chest pain that is mildly sharp and stabbing when he takes a deep breath. This is also different than the substernal ch). negative: Wheezes, Rales, Rhonchi Cardiovascular: positive: Regular rate & rhythm, Systolic murmur. negative: Gallop/S4, Friction rub Peripheral Pulses: positive: 1+ Abdomen: positive: Non-tender, No organomegaly, Nml bowel sounds, No distention, Other (Mildly overweight) Skin: positive: Warm, Dry, Pallor Extremities: positive: Non-tender, No pedal edema. negative: Calf tenderness Neurologic/Psychiatric: positive: Oriented x3, Motor nml (He was able to sit up, stand, walk to the bathroom to urinate. Stood up again on his own, and walked back to bed and got back in bed without any difficulty. Wide-based bowlegged gait but no ataxia. Did not use his cane). negative: CN's nml (2-12) (D eafness. But all else okay) Conclusion/Plan - Problem List (1) Chest pain Conclusion/Plan: Accompanied by some cardiac symptoms that he has palpitations, and nausea. He personally thinks that this is reflux disease. However he has a decade or more long history of palpitations with a negative work-up in the past. It is also pleuritic in that it is worse with a deep breath. He has an explanation for both. The palpitations are from hypoglycemia. And his pleuritic chest pain is from his asbestosis. And worse when you palpate along his chest wall and rib cage. Cholesterol in January 2019 was 166 with LDL 63 and HDL 99.Blood pressure is very elevated and will need to be addressed. Plan: 6-hour set of enzymes and he would like to go home after that He has already had aspirin in the ER, will give atorvastatin with single dose We will need an outpatient work-up with regards to stress test, EGD, esophageal manometry But he is dubious he will follow through with that. I told him that he and Dr Bhandari could go on to have that discussion and I will agree with what by Dr. Bhandari says. He laughs and says that he will back me to see who is Going to win that discussion. Will not repeat echocardiogram Sublingual nitroglycerin as needed Qualifiers: Chest pain type: other chest pain Qualified Code(s): R07.89 - Other chest pain; R07.8 - Other chest pain (2) Hypertension Conclusion/Plan: Medication of diltiazem CD 240 mg and lisinopril 5 mg twice daily. Plan: We will resume those medications Qualifiers: Hypertension type: essential hypertension Qualified Code(s): I10 - Essential (primary) hypertension (3) GERD (gastroesophageal reflux disease) Conclusion/Plan: But he describes reflux and dyspepsia that gets worse if he lays down. That is why he sleeps upright. His current episode of chest pain is associated with indigestion. Although he feels that this may be esophageal spasm after explaining to him, he does not know if he wants to go to the trouble of proving it with an EGD and manometry. In the past he has taken Pepcid for this pain with good relief. Plan: Pepcid GI cocktail To be discussed with primary care provider Qualifiers: Esophagitis bleeding: without hemorrhage (4) Tobacco abuse Conclusion/Plan: Declines nicotine patch at this time - Lab Results Lab results reviewed: Yes Fish Bones: 10/26/20 19:28 10/26/20 19:28 - Diagnostic Imaging Results Diagnostic Imaging Results: positive: Final report reviewed Diagnostic Imaging Results Comments: Calcified left pleural plaque versus left lung mass. Recommend noncontrast CT of chest. This was already seen on chest x-ray February 02, 2019 (Patient has a history of asbestosis) - EKG Results EKG Interpreted Independently: No EKG Comparison: Unchanged from prior EKG EKG Findings: Normal sinus rhythm, no acute ST-T wave changes Core Measures - Anticipated LOS I expect patient to be DC'd or transferred within 96 hours.: Yes - DVT/VTE - Prophylaxis VTE/DVT Device ordered at admit?: No Not Ordered - Low Risk: Very low risk
[2020-10-26] MEDS ORDERED: lisinopriL 5 MG TABLET PO STA (22:44)
[2020-10-26] MEDS ORDERED: ATORVASTATIN 40 MG TABLET PO STA (22:45)
[2020-10-27 00:11] LABS: C. PNEUMONIAE- RESP PCR PANEL NOT DETECTED
[2020-10-27] MEDS: FAMOTIDINE 20 MG TABLET PO SCH ×2 (00:36→11:37)
[2020-10-27] MEDS: SODIUM CHLORIDE FLUSH 0.9% 10 ML SYRINGE IVP SCH ×2 (00:40→11:38)
[2020-10-27] MEDS: GI COCKTAIL 120 ML BOTTLE PO PRN ×2 (02:10→06:21)
--- NOTE | 2020-10-27 07:08 | Discharge Plan ---
Discharge Plan Problem Reviewed?: Yes Disposition: 01 Home, Self Care Condition: Good Diet: Low Sodium Activity Restrictions: Activity as Tolerated Shower Restrictions: No Driving Restrictions: No Instruction Topics: ED Chest Pain NonCardiac Health Concerns: You presented to the hospital with sudden onset of pressure and discomfort underneath your chest bone. It happened while you were watching TV. You have a very long and complicated history of previous cardiac evaluation in your 40s, and a recent episode of passing out because of low blood sugar in January 2019. That was also associated with long-term palpitations. You also have reflux disease because of previous gastric resections. The chest pressure was associated with palpitations, and shortness of breath. But you feel that you have chronic palpitations depending on your sugar, and your shortness of breath is chronic because of asbestosis and plaquing of your lungs. Your EKG was normal here. The blood test to see if you are having a heart attack were also very low. We were getting ready to send you home in the emergency room when he had continued chest pressure and as such we kept you to do your blood test one more time. So far your EKG and blood test remain normal. You do not appear to be having a heart attack. We think you are correct that you may have a problem with reflux disease causing spasm of the muscle of the esophagus to give you chest pressure. Plan of Treatment: 1. See your primary care provider, Dr. Bhandari, in the next week or so. 2. Please consider having an upper endoscopy, and a special test to check the pressures of your esophagus. These will let us know if reflux is in fact the cause of your problem. 3. You have not had a stress test yet between your January 2019 episode of low blood sugar and palpitations and today's episode of chest pressure. Please consider doing a nuclear medicine stress test as ordered by Dr. Bhandari. Care Goals: To remain as independent as possible. Pain-free. Assessment: Patient understands our plan,and why we are suggesting it. However he states he does not know if he will follow through. He will negotiate with Dr. Bhandari. No Smoking: If you smoke, Please STOP! Call for help. Follow-up with: Aleksandr Bhandari MD [Primary Care Provider] -
--- NOTE | 2020-10-27 07:39 | PHARMACY PROGRESS NOTE ---
- Best Possible Medication History Admit Date and Time: 10/26/208 Processed by: Pharmacy Medication History completed: Yes Secondary Source(s): Pharmacy records, Insurance records As the person ultimately responsible for medication therapy, providers are able to order a medication from an existing home medication list in [facility] via the "Reconcile Routine" prior to Confirmation of that medication by credit support specialist. Such practice is discouraged except when the physician, in their clinical judgment, deems that a medical need exists for a medication without regard to previous use.
[2020-10-27 07:54] VITALS: BP 180/81
[2020-10-27] MEDS ORDERED: diltiaZEM CD 240 MG CAPSULE PO SCH (09:00)
[2020-10-27] MEDS ORDERED: lisinopriL 5 MG TABLET PO SCH (09:00)
--- NOTE | 2020-11-10 16:16 | DISCHARGE SUMMARY ---
"Discharge Summary Admit Date: 10/26/20 Discharge Date: 10/27/20 Discharging Provider: Tara Jacobs MD Code Status: Attempt Resuscitation Condition at Discharge: Good Discharge Disposition: 01 Home, Self Care - HPI History of Present Illness: 70-year-old white male whose risk factors for cardiac disease include male sex, age, hypertension, and family hx of a brother who age 35 of MO and dad age 67. He is not a diabetic, does not have high cholesterol, and does not s moke but does chew tobacco. He was watching TV tonight when he had an abrupt onset of dull substernal chest pressure that had no radiation. It caused him to be nauseated and short of breath. There is no jaw pain, , left arm pain with this. No diaphoresis. He has a history of intermittent chronic palpitations. Those were present today. The pain would increase with deep breath, and palpation of his chest wall. But those complaints are chronic. He has asbestosis and pleural plaquing and he has a constant pleuritic ache if he takes too deep of breath. It also hurts if you palpate his left chest wall too much. That is chronic as well. He has a long history of reflux disease. Happens sebastián ost on a daily basis due to his small stomach. He has to sleep with the head of his bed up. If he does not the reflux into the back of his throat and dyspepsia is ferocious.He has lived all over the [facility]. [place], [place], [place], [place], etc. When he was living in [place] he was in his 40s. At that time palpitations were present almost on a daily basis. They started after he had ga stric surgery for his ulcer disease in his 30s. The first surgery resulted in a gastric resection. Second surgery with recurrence of ulcers resulted in a severe GI bleed. He had another gastric resection. Once that happened, he was having palpitations all the time. That resulted in the [place] evaluation where he had a coronary angiogram, Holter monitor, stress test. Everything was negative other than palpitations and they put him on Cardizem. He was hospitalized in January 2019 with syncope here at this hospital. He was found to have a glucose of 40. The patient and the doctor at that time figured out that his hypoglycemia may be inducing palpitations. His primary care provider, Dr. Mariia manzano, did a Holter monitor. Nothing was found. Dr. Bhandari also tried to talk him into a treadmill test and he declined. Once the patient started eating small frequent meals on a regular basis, and no longer had hypoglycemia, he has not had any palpitations. He called an ambulance. He came to the emergency room and was evaluated by ER MD. He was afebrile at 36.6. Heart rate was 64. Blood pressure 185/104. O2 saturations 97. Over the course of his hours in the emergency room he remained hypertensive. The lowest he got was 162 systolic and 95 diastolic. Physical exam was negative. His EKG had sinus rhythm without any ST segment changes. Initial troponin was 4.7, and second troponin was 5.0. Emergency room physician was getting ready to send him home when the chest pressure and discomfort returned. As such the patient is being placed in observation for rule out MO. 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 Due to hypoglycemia from not eating and drinking beer. Echocardiogram with EF 65-70%. Grade 1 diastolic dysfunction. No structural or valvular heart disease.) GI: reports: GERD, Other (80% gastric resection with multiple abdominal surg eries. Eats small meals and prefers liquids. ) : reports: Benign prostate hypertrophy (With urgency, frequency, decreased stream) HEENT: reports: Chronic vision loss (With cataracts and eyeglasses) Psych: reports: None Musculoskeletal: reports: Osteoarthritis, Rheumatoid arthritis, Osteoporosis (F rom long-term steroid use. Gets yearly Reclast injections. Due for bone scan next week) MRSA Hx?: No - Past Surgical History General: reports: Bowel surgery - CONSULTS | PROCEDURES Procedures: Chest x-ray with calcified left pleural plaque versus left lung mass. CAT scan to follow-up in the outpatient setting is recommended. - HOSPITAL COURSE Hospital Course: The patient was placed in observation for a final set of opponents to make sure he was not having an MO. Those troponins were negative. He wished to proceed work-up In the outpatient settingif he was going to get one at all. He did not know if he agreed with a stress test, EGD, or esophageal manometry. But he would follow-up with Dr. Bhandari. Blood pressure was stable during his stay, and reflux disease by history was definitely a problem. He continues to smoke. Once the enzymes were negative the patient was discharged in stable condition. Temperature was 36.6. Heart rate 86. Blood pressure 180/81. I explained to him that the goal should be less than 140/90. Respirations were 16 and he was 100% on room air. I carefully explained to him that his risk factors of male s ex, smoking, elevated blood pressure, and mildly elevated glucose would make him at high risk for heart disease. He is troponins were 4.7, 5.0, 5.3. He has clear lungs, a barrel chest. A benign abdomen without masses or tenderness. Extremities without edema. He is discharged in stable condition to follow-up with his primary care provider Dr. Bhandari. - ALLERGIES Allergies/Adverse Reactions: Allergies Allergy/AdvReac Type Severity Reaction Status Date / Time Unable to Assess Allergy Verified 02/02/19 09:21 - MEDICATIONS Home Medications: Ambulatory Orders Medication Instructions Recorded Confirmed Ascorbic Acid 1,000 mg PO DAILY 02/02/19 10/27/20 Calcium Carbonate [[id number]] 1,000 mg PO DAILY 02/02/19 10/27/20 Cholecalciferol (Vitamin D3) 2,000 unit PO DAILY 02/02/19 10/27/20 [Vitamin D3] Folic Acid 0.8 mg PO DAILY 02/02/19 10/27/20 Magnesium Oxide [Mag Ox] 400 mg PO 0800 02/02/19 10/27/20 Multivit-Min/FA/Lycopen/Lutein 1 each PO DAILY 02/02/19 10/27/20 [Centrum Silver Men Tablet] Potassium Gluconate 594 mg PO DAILY 02/02/19 10/27/20 Triamcinolone 0.1% Oint [Kenalog 1 applic TOP BID 02/02/19 10/27/20 0.1% Oint] dilTIAZem HCl [Diltiazem 24Hr ER 240 mg PO DAILY 02/02/19 10/27/20 (Cd)] hydroCHLOROthiazide [Hydrodiuril] 12.5 mg PO DAILY 02/02/19 10/27/20 Lactose-Reduced Food [Ensure 400 gm PO TID #1 tub 02/03/19 10/27/20 Original] lisinopriL [Zestril] 5 mg PO BID #60 tablet 02/03/19 10/27/20 - LABS Result Diagrams: 10/26/20 19:28 10/26/20 19:28"
== END 2020-10-27 09:00 | disposition home or self-care (01) ==
LOC: EDUNIT# → ED 18:51 → MS2 22:28
PROVIDERS: ADMIT Specialist; ATTEND Specialist
DX: R07.89 Other chest pain (principal); R00.2 Palpitations; I10 Essential (primary) hypertension; R11.0 Nausea; K21.9 Gastro-esophageal reflux disease without esophagitis; J92.0 Pleural plaque with presence of asbestos; R06.09 Other forms of dyspnea; N40.1 Benign prostatic hyperplasia with lower urinary tract symptoms; R35.0 Frequency of micturition; R39.12 Poor urinary stream; Z82.49 Family history of ischemic heart disease and other diseases of the circulatory system; F17.220 Nicotine dependence, chewing tobacco, uncomplicated; R19.7 Diarrhea, unspecified; M06.9 Rheumatoid arthritis, unspecified; Z20.828 Contact with and (suspected) exposure to other viral communicable diseases
CPT/HCPCS: 36415; 71045; 80053; 83690; 84484; 85025; 87631; 93005; 96374; 96375; 99284; 99285; A9270; G0378; 0202U

== ENCOUNTER 2021-02-13 19:49 | Outpatient (CLI) | payer MEDICARE, OTHER | END 2021-02-13 19:50 | disposition critical access hospital (66) | LOC: EMS 19:49 | PROVIDERS: ATTEND Emergency Medicine | DX: R10.9 Unspecified abdominal pain (principal); R11.2 Nausea with vomiting, unspecified | CPT/HCPCS: A0425; A0427 ==

== ENCOUNTER 2021-02-13 20:10 | Emergency (ER) | payer MEDICARE, OTHER ==
--- NOTE | 2021-02-13 20:10 | ED Physician Documentation ---
PD HPI ABD PAIN - Stated complaint Stated Complaint: ABD PX - History obtained from History obtained from: Patient, EMS - History of Present Illness Timing - onset: Today (this morning) Timing - details: Gradual onset, Constant, Waxing and waning Pain level now: 8 Quality: Pain Location: All over / everywhere (predominantly RUQ) Improved by: Laying still Worsened by: Moving, Palpation Associated symptoms: Fever (Tmax 100.3 earlier tonight), Nausea, Vomiting. No: Hematemesis, Diarrhea, Constipation, Melena, Hematochezia, Chest pain Similar symptoms before: Other (earlier in the day patient felt the discomfort was not dissimilar to previous episodes associated with his GERD but symptoms progressed beyond any previous symptoms he has had before) Recently seen: Not recently seen - Additional information Additional information: BIBA c/o abdominal pain since this morning, steadily worsening. It is predominantly RUQ and epigastric but over the day has spread to the entire abdomen and has become associated with nausea and vomiting. He had elevated temperature this evening to Tmax 100.3, took two aspirin and recheck [employer] by his was normal temperature. he has a h/o PUD with two surgeries for this (Billroth I) Review of Systems Constitutional: reports: Fever (Tmax 100.3). denies: Chills, Sweats Eyes: reports: Reviewed and negative Ears: reports: Reviewed and negative Nose: reports: Reviewed and negative Throat: reports: Reviewed and negative Cardiac: reports: Reviewed and negative Respiratory: reports: Reviewed and negative GI: reports: Abdominal Pain, Nausea, Vomiting. denies: Abdominal Swelling, Constipation, Diarrhea, Hematemesis, Bloody / black stool : denies: Dysuria, Frequency Skin: reports: Rash (RUQ , recently was diagnosed with shingles) Musculoskeletal: reports: Reviewed and negative Neurologic: denies: Generalized weakness, Focal weakness, Numbness, Headache PD PAST MEDICAL HISTORY - Past Medical History Past Medical History: Yes Cardiovascular: Hypertension GI: GERD, GI bleed, Ulcers - Past Surgical History Past Surgical History: Yes General: Gastric surgery (Bilroth I) - Present Medications Home Medications: Ambulatory Orders Medication Instructions Recorded Confirmed Ascorbic Acid 1,000 mg PO DAILY 02/02/19 02/13/21 Calcium Carbonate [[id number]] 1,000 mg PO DAILY 02/02/19 02/13/21 Cholecalciferol (Vitamin D3) 2,000 unit PO DAILY 02/02/19 02/13/21 [Vitamin D3] Folic Acid 0.8 mg PO DAILY 02/02/19 02/13/21 Magnesium Oxide [Mag Ox] 400 mg PO 0800 02/02/19 02/13/21 Multivit-Min/FA/Lycopen/Lutein 1 each PO DAILY 02/02/19 02/13/21 [Centrum Silver Men Tablet] Potassium Gluconate 594 mg PO DAILY 02/02/19 02/13/21 Triamcinolone 0.1% Oint [Kenalog 1 applic TOP BID 02/02/19 02/13/21 0.1% Oint] dilTIAZem HCl [Diltiazem 24Hr ER 240 mg PO DAILY 02/02/19 02/13/21 (Cd)] hydroCHLOROthiazide [Hydrodiuril] 12.5 mg PO DAILY 02/02/19 02/13/21 Lactose-Reduced Food [Ensure 400 gm PO TID #1 tub 02/03/19 02/13/21 Original] lisinopriL [Zestril] 5 mg PO BID #60 tablet 02/03/19 02/13/21 - Allergies Allergies/Adverse Reactions: Allergies Allergy/AdvReac Type Severity Reaction Status Date / Time No Known Allergies Allergy Unknown Unknown Verified 02/13/21 20:24 - Living Situation Living Situation: reports: With spouse/s.o. Living Arrangement: reports: At home - Social History Does the pt smoke?: No PD ED PE NORMAL - Vitals Vital signs reviewed: Yes - General General: Alert and oriented X 3, No acute distress, Well developed/nourished - HEENT HEENT: Moist mucous membranes - Neck Neck: Supple, no meningeal sign - Cardiac Cardiac: RRR, No murmur - Respiratory Respiratory: No respiratory distress, Clear bilaterally - Abdomen Abdomen: Soft, Non distended - Back Back: No CVA TTP - Derm Derm: Normal color, Warm and dry - Extremities Extremities: No edema PD ED PE EXPANDED - Abdomen Abdomen: Tender to palpation (diffusely TTP , worst in RUQ with right-sided rebound tenderness), Rebound, Surgical scars (old, healed midline upper abdominal surgical scar) - Derm Derm: Rash (RUQ exanthem s/o recent but healing shingles) Results - Vitals Vitals: Vital Signs - 24 hr 02/13/21 02/13/21 02/13/21 20:18 21:00 22:30 Temperature 36.5 C Heart Rate 82 73 Respiratory 15 Rate Blood Pressure 115/73 102/70 108/70 O2 Saturation 99 99 02/14/21 02/14/21 02/14/21 00:17 00:35 01:02 Temperature 36.8 C Heart Rate 72 68 71 Respiratory 15 16 16 Rate Blood Pressure 105/69 93/61 117/71 O2 Saturation 99 95 97 Oxygen O2 Source Room air - Labs Labs: Laboratory Tests 02/13/21 02/13/21 02/13/21 20:39 20:39 22:42 WBC 9.8 RBC 4.09 L Hgb 13.4 L Hct 38.6 L MCV 94.4 H MCH 32.8 H MCHC 34.7 RDW 12.9 Plt Count 231 MPV 8.0 Neut # (Auto) 8.5 H Lymph # (Auto) 0.4 L Hall # (Auto) 0.8 Eos # (Auto) 0.0 Baso # (Auto) 0.0 Absolute Nucleated RBC 0.00 Nucleated RBC % 0.0 Sodium 127 L Potassium 3.8 Chloride 89 L Carbon Dioxide 23 Anion Gap 15.0 H BUN 14 Creatinine 1.2 Estimated GFR (MDRD) 60 L Glucose 119 H Lactic Acid 1.0 Calcium 8.8 Total Bilirubin 1.3 H AST 21 ALT 18 Alkaline Phosphatase 58 Total Protein 6.5 L Albumin 3.7 Globulin 2.8 Albumin/Globulin Ratio 1.3 Lipase 20 L Urine Color Urine Clarity Urine pH Ur Specific [place] Urine Protein Urine Glucose (UA) Urine Ketones Urine Occult Blood Urine Nitrite Urine Bilirubin Urine Urobilinogen Ur Leukocyte Esterase Ur Microscopic Review Urine Culture Comments Nasal Adenovirus (PCR) Nasal B. parapertussis DNA (PCR) Nasal Coronavir 229E PCR Nasal Coronavir HKU1 PCR Nasal Coronavir NL63 PCR Nasal Coronavir OC43 PCR Nasal Enterovir/Rhinovir PCR Nasal Influenza B PCR Nasal Influenza A PCR Nasal Parainfluen 1 PCR Nasal Parainfluen 2 PCR Nasal Parainfluen 3 PCR Nasal Parainfluen 4 PCR Nasal RSV (PCR) Nasal B.pertussis DNA PCR Nasal C.pneumoniae (PCR) Manuel Human Metapneumo PCR Nasal M.pneumoniae (PCR) Nasal SARS-CoV-2 (PCR) 02/13/21 02/14/21 22:43 00:11 WBC RBC Hgb Hct MCV MCH MCHC RDW Plt Count MPV Neut # (Auto) Lymph # (Auto) Hall # (Auto) Eos # (Auto) Baso # (Auto) Absolute Nucleated RBC Nucleated RBC % Sodium Potassium Chloride Carbon Dioxide Anion Gap BUN Creatinine Estimated GFR (MDRD) Glucose Lactic Acid Calcium Total Bilirubin AST ALT Alkaline Phosphatase Total Protein Albumin Globulin Albumin/Globulin Ratio Lipase Urine Color YELLOW Urine Clarity CLEAR Urine pH 7.5 Ur Specific [place] 1.010 Urine Protein NEGATIVE Urine Glucose (UA) NEGATIVE Urine Ketones NEGATIVE Urine Occult Blood NEGATIVE Urine Nitrite NEGATIVE Urine Bilirubin NEGATIVE Urine Urobilinogen 0.2 (NORMAL) Ur Leukocyte Esterase NEGATIVE Ur Microscopic Review NOT INDICATED Urine Culture Comments NOT INDICATED Nasal Adenovirus (PCR) NOT DETECTED Nasal B. parapertussis DNA (PCR) NOT DETECTED Nasal Coronavir 229E PCR NOT DETECTED Nasal Coronavir HKU1 PCR NOT DETECTED Nasal Coronavir NL63 PCR NOT DETECTED Nasal Coronavir OC43 PCR NOT DETECTED Nasal Enterovir/Rhinovir PCR NOT DETECTED Nasal Influenza B PCR NOT DETECTED Nasal Influenza A PCR NOT DETECTED Nasal Parainfluen 1 PCR NOT DETECTED Nasal Parainfluen 2 PCR NOT DETECTED Nasal Parainfluen 3 PCR NOT DETECTED Nasal Parainfluen 4 PCR NOT DETECTED Nasal RSV (PCR) NOT DETECTED Nasal B.pertussis DNA PCR NOT DETECTED Nasal C.pneumoniae (PCR) NOT DETECTED Manuel Human Metapneumo PCR NOT DETECTED Nasal M.pneumoniae (PCR) NOT DETECTED Nasal SARS-CoV-2 (PCR) NOT DETECTED - Rads (name of study) CT A/P with IV contrast Radiology: Prelim report reviewed, See rad report PD MEDICAL DECISION MAKING - ED course Complexity details: reviewed old records, reviewed results, re-evaluated patient, considered differential, d/w patient, d/w family (I contacted patient's spouse per patient's request, informed her of results and that he would require transfer to another facility), d/w java consultant (Dr. Lucas consulted and she came to ED, reviewed CT and evaluated patient. She recommends transfer to facility with IR capability) ED course: Despite reassuring blood test results, CT findings are s/o perforated gallbladder. Dr. Lucas recommends transfer to facility with IR capability. I discussed the case with Dr. Dominique Medina at [facility], accepts transfer to [facility]. Departure - Departure Disposition: 02 Transfer Acute Care Hosp Clinical Impression: Perforated gallbladder Condition: Fair Discharge Date/Time: 02/14/21 01:04
[2021-02-13] MEDS ORDERED: SODIUM CHLORIDE 0.9% 1,000 ML IV STA ×2 (20:32→22:52)
[2021-02-13] MEDS ORDERED: MORPHINE 2 MG/ML CARPUJECT IVP STA ×2 (20:32→22:52)
[2021-02-13] MEDS ORDERED: ONDANSETRON 4 MG/2 ML VIAL IVP STA ×2 (20:32→22:52)
[2021-02-13 20:44] LABS: BASOPHILS % (AUTO) 0.3 %; EOSINOPHILS % (AUTO) 0.3 %; HCT - HEMATOCRIT 38.6 % (42.0-52.0); HGB - HEMOGLOBIN 13.4 g/dL (14.0-18.0); LYMPHOCYTES # (AUTO) 0.4 10^3/uL (1.5-3.5); LYMPHOCYTES % (AUTO) 4.1 %; MEAN CORPUSCULAR HEMOGLOBIN 32.8 pg (27.0-31.0); MEAN CORPUSCULAR HGB CONC 34.7 g/dL (32.0-36.0); MEAN CORPUSCULAR VOLUME 94.4 fL (80.0-94.0); MONOCYTES # (AUTO) 0.8 10^3/uL (0.0-1.0); MONOCYTES % (AUTO) 8.1 %; NEUTROPHILS # (AUTO) 8.5 10^3/uL (1.5-6.6); NEUTROPHILS % (AUTO) 86.8 %; PLT - PLATELET COUNT 231 10^3/uL (130-450); RED BLOOD COUNT 4.09 10^6/uL (4.70-6.10); RED CELL DISTRIBUTION WIDTH 12.9 % (12.0-15.0); WHITE BLOOD COUNT 9.8 x10^3/uL (4.8-10.8)
[2021-02-13 20:58] LABS: ALBUMIN 3.7 g/dL (3.2-5.5); ALBUMIN/GLOBULIN RATIO 1.3 (1.0-2.2); BILIRUBIN,TOTAL 1.3 mg/dL (0.2-1.0); CALCIUM 8.8 mg/dL (8.5-10.3); CREATININE 1.2 mg/dL (0.6-1.2); POTASSIUM 3.8 mmol/L (3.5-5.0); TOTAL PROTEIN 6.5 g/dL (6.7-8.2)
[2021-02-13] MEDS ORDERED: IOVERSOL 320 100 ML VIAL IVP ONE ×2 (21:18→21:36)
--- NOTE | 2021-02-13 22:31 | CT Report ---
PROCEDURE: Abdomen/Pelvis W INDICATIONS: abdominal pain, tenderness CONTRAST: IV CONTRAST: Optiray 320 ml: 100 PO CONTRAST: *NO PO CONTRAST TECHNIQUE: After the administration of intravenous contrast, 5 mm thick sections acquired from the diaphragms to the symphysis. 5 mm thick coronal and sagittal reformats were acquired. For radiation dose reducti on, the following was used: automated exposure control, adjustment of mA and/or kV according to kings ent size. COMPARISON: None. FINDINGS: Image quality: Excellent. ABDOMEN: Lung bases: There is dependent atelectasis bilaterally. Heart size is normal. Solid organs: There is distention of the gallbladder with wall thickening and enhancement as well as pericholecystic fat stranding and a small amount of pericholecystic fluid. A 0.8 cm calcification is demonstrated posterior to the gallbladder wall suspicious for small gallstone. There is adjacent fat stranding and fluid extending to the colon at the hepatic flexure. Evaluation of the liver demonstrates no focal hepatic lesions. Biliary system is non dilated. The sp zander is normal in size. Pancreas enhances normally without peripancreatic fluid collections. No adre nal nodules. Kidneys demonstrate no hydronephrosis. Peritoneum and bowel: Small bowel loops demonstrate normal wall thickness and caliber. The appendix i s normal in appearance. Segmental colonic wall thickening is demonstrated in the colon centered at th e hepatic flexure with associated wall enhancement and pericolonic fat stranding. More distally, ther e is colonic diverticulosis without acute diverticulitis. A small amount of subhepatic free fluid is demonstrated. No intraperitoneal free air. Nodes and vessels: No retroperitoneal or mesenteric adenopathy by size criteria. Aorta and inferior vena cava are normal in size. Miscellaneous: No ventral hernias. PELVIS: Genitourinary: Bladder wall thickness is normal. Miscellaneous: No inguinal hernias or adenopathy. Bones: No suspicious bony lesions. No vertebral body compression fractures. IMPRESSION: 1. Gallbladder distention with wall thickening and enhancement as well as associated fat stranding an d pericholecystic fluid consistent with acute cholecystitis. 2. Small calcification posterior to the gallbladder wall is suggestive of an extraluminal gallstone a nd raises the possibility of a small perforation. Adjacent small amount of free fluid and fat strandi ng demonstrated extending to the colon with an associated reactive colitis. No discrete abscess colle ction or free air. Findings discussed with Gemma Sol, nurse practitioner on 02/13/2021 at 10:20 PM. Reviewed by: Spencer Hernandez MD on 02/13/2021 10:29 PM PDT Approved by: Spencer Hernandez MD on 02/13/2021 10:29 PM PDT Station ID: [id number]
[2021-02-13] MEDS ORDERED: PIPERACILLIN/TAZOBACTAM 4.5 GM in SODIUM CHLORIDE 0.9% MINIBAG 100 ML IV STA (22:49)
--- NOTE | 2021-02-13 23:24 | CONSULTATION NOTE ---
Referring Provider Name of Referring Provider:: Dr. Muñiz Consult Date: 02/13/21 Chief Complaint - Chief Complaint Chief Complaint: Abdominal pain History of Present Illness - Admitted From Admitted From:: EMS to ED - History Obtained From Records Reviewed: Pre hospital record History obtained from: Patient and physician Exam Limitations: None - History of Present Illness HPI Comment/Other: Shan is a very pleasant 70-year-old gentleman has been having right upper quadrant and midepigastric and right lower quadrant abdominal pain for about a week he says it got acutely worse last evening and then this morning until he finally decided he just could not tolerate it anymore he thought it was related to a case of shingles he is had in the past where he had some shingles over the right side of his abdomen but he noted that there was not a rash there he did take some Prilosec and he also took an aspirin and that did not help the pain became intractable this evening and he began vomiting repeatedly a green liquid and his called EMS and he was transported to the emergency room. In the emergency room his vital signs have been stable. He has declined most offers for pain medicine though he did take 2 mg of morphine after some encouragement. He reports it did not really help with his discomfort. He was seen and evaluated by the ER staff and found to have evidence of a perforated gallbladder on CT scan with inflammatory reaction involving the colon and mesentery of the small bowel. Mr. Pack reports he had problems with ulcers and had an operation many years ago. History - Past Medical History Cardiovascular: reports: Hypertension, Arrhythmia Respiratory: reports: Other Neuro: reports: Other Endocrine/Autoimmune: reports: Other GI: reports: GERD, Other : reports: Benign prostate hypertrophy HEENT: reports: Chronic vision loss Psych: reports: None Musculoskeletal: reports: Osteoarthritis, Rheumatoid arthritis, Osteoporosis Derm: reports: None MRSA Hx?: No - Past Surgical History General: reports: Bowel surgery HEENT: reports: Cataracts - Family & Social History Family History Comment/Other: Mom at age 91 of old age. Dad dropdead of a massive heart attack age 67. 1 sister of complications of Parkinson's disease at age 67. 1 brother at age 35 of massive heart attack. 2 adopted children. 1 child that is healthy Living Situation: With spouse/s.o. Social History Notes: Was drinking at 12 pack of beer in January 2019.He has cut back on that. He now drinks 30 beers in a little over a week. Has no history of withdrawal. Has been chewing tobacco since the age of 7. Has no intention of stopping. "You know what the definition of a levelheaded man is ? Will Danny said that if he chews tobacco, and it drips out of both sides of his mouth in the same way, that is a levelheaded man". to his third for over 30 years. Retired construction. 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 No history of recreational substance abuse.He has 1 child and 2 adopted children. They live in [place] and other [facility]. - Substance History Use: Uses substance without health or social issues: Tobacco - POLST Patient has POLST: No POLST Status: Full Code Meds/Allgy - Home Medications Home Medications: Ambulatory Orders Medication Instructions Recorded Confirmed Ascorbic Acid 1,000 mg PO DAILY 02/02/19 02/13/21 Calcium Carbonate [[id number]] 1,000 mg PO DAILY 02/02/19 02/13/21 Cholecalciferol (Vitamin D3) 2,000 unit PO DAILY 02/02/19 02/13/21 [Vitamin D3] Folic Acid 0.8 mg PO DAILY 02/02/19 02/13/21 Magnesium Oxide [Mag Ox] 400 mg PO 0800 02/02/19 02/13/21 Multivit-Min/FA/Lycopen/Lutein 1 each PO DAILY 02/02/19 02/13/21 [Centrum Silver Men Tablet] Potassium Gluconate 594 mg PO DAILY 02/02/19 02/13/21 Triamcinolone 0.1% Oint [Kenalog 1 applic TOP BID 02/02/19 02/13/21 0.1% Oint] dilTIAZem HCl [Diltiazem 24Hr ER 240 mg PO DAILY 02/02/19 02/13/21 (Cd)] hydroCHLOROthiazide [Hydrodiuril] 12.5 mg PO DAILY 02/02/19 02/13/21 Lactose-Reduced Food [Ensure 400 gm PO TID #1 tub 02/03/19 02/13/21 Original] lisinopriL [Zestril] 5 mg PO BID #60 tablet 02/03/19 02/13/21 - Allergies Allergies/Adverse Reactions: Allergies Allergy/AdvReac Type Severity Reaction Status Date / Time No Known Allergies Allergy Unknown Unknown Verified 02/13/21 20:24 Review of Systems - Constitutional Constitutional: reports: Fatigue, Malaise, Poor appetite - Eyes Eyes: denies: Pain, Irritation - Ears, Nose & Throat Ears, Nose & Throat: denies: Tinnitus, Vertigo - Cardiovascular Cariovascular: reports: Lightheadedness. denies: Irregular heart rate, Palpitations, Chest pain, Edema - Respiratory Respiratory: reports: Cough. denies: Wheezing - Gastrointestinal Gastrointestinal: reports: Abdominal pain, Abdominal distention, Nausea, Vomiting, Bile emesis - Musculoskeletal Musculoskeletal: reports: Muscle pain, Back pain - Integumentary Integumentary: denies: Rash, Pruritis - Hematologic/Lymphatic Hematologic/Lymphatic: reports: Anemia, Bruising Exam - Vital Signs Reviewed Vital Signs: Yes Vital Signs: Vital Signs x48h Temp Pulse Resp BP Pulse Ox 02/13/21 20:18 36.5 C 82 15 115/73 99 - Physical Exam General Appearance: positive: Moderate distress Eyes Bilateral: positive: Normal inspection, PERRL, EOMI ENT: positive: No signs of dehydration Neck: positive: Nml inspection Respiratory: positive: Chest non-tender, Rhonchi (Bases bilaterally) Cardiovascular: positive: Regular rate & rhythm Peripheral Pulses: positive: 0 Abdomen: positive: Tenderness, Guarding, Rebound, Abnml bowel sounds, Other (Nereida peritoneal signs) Skin: positive: No rash Neurologic/Psychiatric: positive: Oriented x3 Conclusion and Plan - Lab Results Laboratory Results 02/13/21 22:42: Lactic Acid 1.0 02/13/21 20:39: Sodium 127 L, Potassium 3.8, Chloride 89 L, Carbon Dioxide 23, Anion Gap 15.0 H, BUN 14, Creatinine 1.2, Estimated GFR (MDRD) 60 L, Glucose 119 H, Calcium 8.8, Total Bilirubin 1.3 H, AST 21, ALT 18, Alkaline Phosphatase 58, Total Protein 6.5 L, Albumin 3.7, Globulin 2.8, Albumin/Globulin Ratio 1.3, Lipase 20 L 02/13/21 20:39: WBC 9.8, RBC 4.09 L, Hgb 13.4 L, Hct 38.6 L, MCV 94.4 H, MCH 32.8 H, MCHC 34.7, RDW 12.9, Plt Count 231, MPV 8.0, Neut # (Auto) 8.5 H, Lymph # (Auto) 0.4 L, [place] # (Auto) 0.8, Eos # (Auto) 0.0, Baso # (Auto) 0.0, Absolute Nucleated RBC 0.00, Nucleated RBC % 0.0 - Diagnostic Imaging Results Diagnostic Imaging Results: positive: Final report reviewed (In addition to the report findings, anatomy is consistent with a Bilroth I gastroduodenectomy with gastrojejunostomy. The gastric wall is thickened as well.) Diagnostic Imaging Results Comments: Final Report PT NAME: SHAN PACK MR#: [id number] REG ER/ED AGE: 70 CI DT/TM: 02/13/21 PCP: Aleksandr Bhandari MD : 1950 ATT: SEX: M ORD: Sriram canela MD EXAM: [id number] CT/ABPEW ([id number]) PROCEDURE: Abdomen/Pelvis W INDICATIONS: abdominal pain, tenderness CONTRAST: IV CONTRAST: Optiray 320 ml: 100 PO CONTRAST: *NO PO CONTRAST TECHNIQUE: After the administration of intravenous contrast, 5 mm thick sections acquired from the diaphragms to the symphysis. 5 mm thick coronal and sagittal reformats were acquired. For radiation dose reduction, the following was used: automated exposure control, adjustment of mA and/or kV according to patient size. COMPARISON: None. FINDINGS: Image quality: Excellent. ABDOMEN: Lung bases: There is dependent atelectasis bilaterally. Heart size is normal. Solid organs: There is distention of the gallbladder with wall thickening and enhancement as well as pericholecystic fat stranding and a small amount of pericholecystic fluid. A 0.8 cm calcification is demonstrated posterior to the gallbladder wall suspicious for small gallstone. There is adjacent fat stranding and fluid extending to the colon at the hepatic flexure. Evaluation of the liver demonstrates no focal hepatic lesions. Biliary system is non dilated. The spleen is normal in size. Pancreas enhances normally without peripancreatic fluid collections. No adrenal nodules. Kidneys demonstrate no hydronephrosis. Peritoneum and bowel: Small bowel loops demonstrate normal wall thickness and caliber. The appendix is normal in appearance. Segmental colonic wall thickening is demonstrated in the colon centered at the hepatic flexure with associated wall enhancement and pericolonic fat stranding. More distally, there is colonic diverticulosis without acute diverticulitis. A small amount of subhepatic free fluid is demonstrated. No intraperitoneal free air. Nodes and vessels: No retroperitoneal or mesenteric adenopathy by size criteria. Aorta and inferior vena cava are normal in size. Miscellaneous: No ventral hernias. PELVIS: Genitourinary: Bladder wall thickness is normal. Miscellaneous: No inguinal hernias or adenopathy. Bones: No suspicious bony lesions. No vertebral body compression fractures. IMPRESSION: 1. Gallbladder distention with wall thickening and enhancement as well as associated fat stranding and pericholecystic fluid consistent with acute cholecystitis. 2. Small calcification posterior to the gallbladder wall is suggestive of an extraluminal gallstone and raises the possibility of a small perforation. Adjacent small amount of free fluid and fat stranding demonstrated extending to the colon with an associated reactive colitis. No discrete abscess collection or free air. Findings discussed with Gemma Sol, nurse practitioner on 02/13/2021 at 10:20 PM. Reviewed by: Spencer Hernandez MD on 02/13/2021 10:29 PM PDT Approved by: Spencer Hernandez MD on 02/13/2021 10:29 PM PDT - Diagnosis Diagnosis: Perforated cholecystits with severe inflammatory reaction involving the ascending and transverse colons in the setting of prior gastroduodenectomy with Bilroth 1 reconstruction. This is complicated by multiple complicating health issues including Rheumatoid arthritis. - Plan Plan: In my opinion, Mr. Pack is best served by percutaneous drainage and control of the immediate infections process including the possibility of ascending colangitis and nereida peritonitis. This will require transfer to a higher level of care. I have discussed this with the patient and he is in agreement with this plan.
[2021-02-13 23:36] LABS: B. PARAPERTUSSIS- RESP PCR PAN NOT DETECTED; B. PERTUSSIS- RESP PCR PANEL NOT DETECTED; C. PNEUMONIAE- RESP PCR PANEL NOT DETECTED; CORONAVIRUS 229E-RESP PCR NOT DETECTED; CORONAVIRUS HKU1-RESP PCR NOT DETECTED; CORONAVIRUS NL63-RESP PCR NOT DETECTED; CORONAVIRUS OC43-RESP PCR NOT DETECTED; HUMAN METAPNEUMOVIRUS NOT DETECTED; INFLUENZA A- RESP PCR PANEL NOT DETECTED; INFLUENZA B - RESP PCR PANEL NOT DETECTED; M. PNEUMONIAE- RESP PCR PANEL NOT DETECTED; PARAINFLUENZA VIRUS 1 NOT DETECTED; PARAINFLUENZA VIRUS 2 NOT DETECTED; PARAINFLUENZA VIRUS 3 NOT DETECTED; PARAINFLUENZA VIRUS 4 NOT DETECTED; RHINOVIRUS/ENTEROVIRUS NOT DETECTED; RSV- RESP PCR PANEL NOT DETECTED; SARS-CoV-2 -RESP PCR PANEL NOT DETECTED
[2021-02-14 00:18] LABS: BILIRUBIN,URINE NEGATIVE (NEGATIVE); GLUCOSE, URINE (UA) NEGATIVE (NEGATIVE); KETONES,URINE (UA) NEGATIVE (NEGATIVE); LEUKOCYTE ESTERASE, URINE NEGATIVE (NEGATIVE); NITRITE,URINE NEGATIVE (NEGATIVE); OCCULT BLOOD,URINE NEGATIVE (NEGATIVE); PH,URINE 7.5 PH (5.0-7.5); PROTEIN,URINE NEGATIVE (NEGATIVE); UROBILINOGEN,URINE 0.2 (NORMAL) E.U./dL (NORMAL)
[2021-02-14] MEDS: PROMETHAZINE INJ 25 MG in SODIUM CHLORIDE 0.9% 50 ML IV STA ×2 (00:20→00:33)
[2021-02-14 00:21] LABS: CLARITY,URINE CLEAR (CLEAR)
[2021-02-14] MEDS ORDERED: PROMETHAZINE 25 MG/1 ML VIAL ONE (00:32)
[2021-02-14 01:02] VITALS: BP 117/71
== END 2021-02-14 01:04 | disposition short-term general hospital (02) ==
LOC: EDUNIT# → ED 20:10
DX: K82.2 Perforation of gallbladder (principal); B02.9 Zoster without complications; I10 Essential (primary) hypertension; Z20.822 Contact with and (suspected) exposure to COVID-19
CPT/HCPCS: 36415; 74177; 80053; 81003; 83605; 83690; 85025; 87040; 87631; 96361; 96365; 96367; 96375; 99284; 99285; Q9967; 0202U; 81001; 87086

== ENCOUNTER 2021-02-14 01:06 | Outpatient (CLI) | payer MEDICARE, OTHER | END 2021-02-14 01:07 | disposition short-term general hospital (02) | LOC: EMS 01:06 | PROVIDERS: ATTEND Emergency Medicine | DX: K82.2 Perforation of gallbladder (principal) | CPT/HCPCS: A0425; A0426 ==

== ENCOUNTER 2021-09-02 07:43 | Outpatient (CLI) | payer MEDICARE, OTHER ==
--- NOTE | 2021-09-02 09:53 | CARDIAC PROCEDURE NOTE ---
Stress Test Report Service Date: 09/02/21 Service Time: 09:30 Ordering Provider: Spencer Bhandari MD Indication for Test: Assess exertional dyspnea in patient with longstanding occupational asbestos exposure and reported plaque present on chest imaging. 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 He has experienced gradually progressive exertional dyspnea over the past year, with a continuing decline in exercise tolerance. His exertional tolerance is also adversely affected by chronic lower back pain, for which he uses a cane for support. He reports that, with this assist device if walking at a reasonably normal pace for him, he can walk about 1 block on flat ground. At this pace he can climb a single flight of stairs but has to rest at the top due to shortness of breath. He did not originally report experiencing chest tightness with exertion. He also reports periodic episodes of nocturnal dyspnea "as if I dreamed that I was running" which requires him to elevate the head of his electric bed, with resolution of symptoms in 15-30 minutes. -About 10 years ago Shan was found to have intermittent atrial fibrillation, and over the ensuing period he has been treated with some combination of Cartia XT, HCTZ, lisinopril and metoprolol, though metoprolol was discontinued this spring (records suggest due to bradycardia). He feels that he continues to have episodes of atrial fibrillation, but has never been on an anticoagulant. He reports hospitalization in the past few months at [facility] for gallbladder disease with resulting cholecystectomy, at which time he was advised to "address his atrial fibrillation". -This morning prior to his exercise stress test he underwent a diagnostic echocardiogram, with preliminary results indicating normal left and right ventricular size and function, without evidence of valvular disease or elevated filling pressures. He has never undergone pulmonary function testing. Cardiac Risk Factors: Longstanding hypertension (>20-25 yrs); no reported history of dyslipidemia, diabetes, cigarette smoking or known family history of ASCVD events. Type of Stress Test: Exercise Treadmill Test (ETT) Procedure: -Exercise Treadmill Test- After signing informed consent, the patient performed treadmill exercise using a Modified Ferny protocol. The patient exercised for 7 minutes 12 seconds and achieved a peak heart rate of 121 (81 percent predicted maximum heart rate for age), and an estimated workload of 3.5 METS. The test was terminated due to "chest tightness radiating to my back" rated "9 out of 10" in severity, with progressive lower back pain; in recovery, shortness of breath was reported as predominant, with rapid decrease in chest tightness and back pain. Resting heart rate: 90 Peak heart rate: 121 Abnormal response to exercise, likely due in part to his having taken his Cartia XT 240 mg this morning. Resting BP: 122/81 Peak BP: 188/83 Normal BP response to exercise. Rhythm during exercise: Sinus rhythm with isolated uniform PVCs that did not especially change in frequency during the exercise test. Symptoms: As described above; note that he reported during exercise that the chest tightness he experienced occurs routinely with vigorous walking and along with dyspnea does limit his exertional tolerance. EKG at rest showed normal sinus rhythm with first-degree AV block (WV interval 230 msec), low voltage QRS in the limb leads, and early precordial R/S transition, with isoelectric ST segments and upright T waves throughout. EKG at peak stress showed no ischemic ST depression by EKG criteria, though at a maximal heart rate that was suboptimal, at 81%. In Recovery heart rate and blood pressure returned to baseline levels in a physiologic manner. No imaging was ordered with this stress test. IJuan MD, was present throughout this exercise stress test and supervised it in its entirety. Summary: 1) Exercise tolerance well below average for age as evidenced by achievement of only 3.5 METS; no PENG assessment is available for the modified Ferny protocol. 2) Abnormal resting EKG (first degree AV block) but with interpretable ST segments. 3) Adequate level of exercise was not achieved on this treadmill stress test. Consider re-evaluation and stress testing using Pharmacologic stress with Nuclear or Echo imaging. 4) Normal BP response to exercise. 5) No ischemic changes by EKG criteria were seen at peak stress. 6) No imaging was ordered with this test. CONCLUSIONS: 1. Clinically positive ETT result, with recreation of patient's exertional dyspnea and heretofore unreported chest tightness. 2. No EKG evidence of inducible ischemia, but failure to achieve 85% of predicted maximal heart rate for age reduces the sensitivity of this test to detect ischemia. Pharmacologic stress with imaging could be considered for more definitive symptom evaluation. 3. Given the patient's longstanding asbestos exposure history and report of plaquing by chest imaging, it would be very reasonable for him to undergo formal pulmonary function testing to further assess his exertional dyspnea. 4. He meets criteria for administration of oral anticoagulant therapy, to reduce the risk of thromboembolic complications of atrial fibrillation, given his history of hypertension and age greater than 65 years.
== END 2021-09-02 07:44 | disposition home or self-care (01) ==
LOC: DI 07:43
PROVIDERS: ATTEND Internal Medicine
DX: R06.09 Other forms of dyspnea (principal); R07.89 Other chest pain; I48.91 Unspecified atrial fibrillation; I49.3 Ventricular premature depolarization; I10 Essential (primary) hypertension; F17.200 Nicotine dependence, unspecified, uncomplicated
CPT/HCPCS: 93016; 93017; 93018; 93306

== ENCOUNTER 2021-09-18 13:42 | Outpatient (CLI) | payer MEDICARE, OTHER ==
--- NOTE | 2021-09-18 15:57 | Ultrasound Report ---
PROCEDURE: Carotid Doppler Complete INDICATIONS: RETINAL VASCULAR OCCLUSION TECHNIQUE: Color and pulse Doppler interrogation was performed of both carotid systems, with image documentation and velocity measurements. COMPARISON: None. FINDINGS: Right side: Brachial blood pressure: 155/79 mm Hg. Common carotid artery peak systolic velocity: 85 cm/sec. Internal carotid artery peak systolic velocity: 65.6 cm/sec. Internal carotid artery end diastolic velocity: 22.9 cm/sec. External carotid artery peak systolic velocity: 76.9 cm/sec. ICA/CCA peak systolic ratio: 0.8 . Kunz scale imaging description: Mild plaque. Percent internal carotid artery stenosis: Mild, less than 50%. . Vertebral artery: Flow direction is antegrade. Left side: Brachial blood pressure: 140/79 mm Hg. Common carotid artery peak systolic velocity: 72.8 cm/sec. Internal carotid artery peak systolic velocity: 99.0 cm/sec. Internal carotid artery end diastolic velocity: 24.6 cm/sec. External carotid artery peak systolic velocity: 94.1 cm/sec. ICA/CCA peak systolic ratio: 1.4 . Kunz scale imaging description: Mild plaque Percent internal carotid artery stenosis: Mild, less than 50% . Vertebral artery: Flow direction is antegrade. IMPRESSION: Mild bilateral, less than 50% internal carotid artery stenoses. The estimate of stenosis included in the report of the imaging study was calculated using the NASCET method Reviewed by: Mukesh Gilbert MD on 09/18/2021 3:55 PM PDT Approved by: Mukesh Gilbert MD on 09/18/2021 3:55 PM PDT Station ID: [id number]
== END 2021-09-18 13:43 | disposition home or self-care (01) ==
LOC: DI 13:42
PROVIDERS: ATTEND Student in an Organized Health Care Education/Training Program
DX: H34.9 Unspecified retinal vascular occlusion (principal)
CPT/HCPCS: 93880

== ENCOUNTER 2021-09-30 12:10 | Outpatient (CLI) | payer MEDICARE, OTHER ==
[2021-09-30] MEDS ORDERED: REGADENOSON 0.4 MG/5 ML SYRINGE IVP ONE ×2 (14:14→16:00)
--- NOTE | 2021-09-30 14:54 | CARDIAC PROCEDURE NOTE ---
Stress Test Report Service Date: 09/30/21 Service Time: 12:30 Ordering Provider: Betito Mueller PA-C Indication for Test: Assess for ischemic contribution to exertional dyspnea, after treadmill stress echocardiogram limited by submaximal heart rate response. 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 He has experienced gradually progressive exertional dyspnea over the past year, with a continuing decline in exercise tolerance. His exertional tolerance is also adversely affected by chronic lower back pain, for which he uses a cane for support. He reports that, with this assist device if walking at a reasonably normal pace for him, he can walk about 1 block on flat ground. At this pace he can climb a single flight of stairs but has to rest at the top due to shortness of breath. When exertional dyspnea is significant he may also experience central substernal chest discomfort that can radiate posteriorly -Shan reports having intermittent atrial fibrillation for about 10 years, and he has been treated with some combination of Cartia XT, HCTZ, lisinopril and metoprolol, though metoprolol was discontinued this spring (records suggest due to bradycardia). He feels that he continues to have episodes of atrial fibrillation, but has never been on an anticoagulant. He reports hospi talization in the past few months at [facility] for gallbladder disease with resulting cholecystectomy, at which time he was advised to "address his atrial fibrillation". -On 09/02/21 Shan underwent an exercise treadmill test without imaging, using the modified Ferny protocol. He did experience both his typical exertional dyspnea and chest tightness radiating to the back. However he only achieved a heart rate of 121 bpm, that was 81% predicted maximal heart rate. There was no ischemic ST depression by EKG criteria, though failure to achieve the target heart rate could reduce sensitivity of this test to detect ischemia. On that day he also underwent a diagnostic echocardiogram, demonstrating normal left and right ventricular size and function, without evidence of valvular disease or elevated filling pressures. He has never undergone pulmonary function testing. 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 For reasons that are not clear to me he has not yet been started on an anticoagulant, but this needs to be addressed in the near term Cardiac Risk Factors: Longstanding hypertension (>20-25 years); no reported history of dyslipidemia, diabetes, cigarette smoking or known family history of ASCVD events. Type of Stress Test: Pharmacologic Stress Test with MPI Pharmacologic Agent: Lexiscan Procedure: -Pharmacologic Stress Test- After signing informed consent, the patient underwent rest SPECT imaging and then performed a walking Lexiscan pharmacologic stress test. The protocol includes 2 minutes of flat walking at 0.8 mph ("baseline") followed by injection of Lexiscan and high dose 99Tc-Myoview with an additional 2 minutes of walking ("peak" reassesment) followed by monitoring for an additional 4 minutes ("recov douglas"). The test was terminated due to completing the protocol. Baseline heart rate: 105 Peak heart rate: 130 Normal HR response. Baseline BP: 155/79 Peak BP: 172/84 Mildly hypertensive BP response. Rhythm during testing: Sinus rhythm throughout. Symptoms: Patient developed his typical dyspnea with walking, that intensified following admistration of Lexiscan and was associated by chest tightness rated "5" out of 10. EKG at rest showed normal sinus rhythm with possible left atrial abnormality and low limb lead QRS voltages. EKG at peak stress showed no ischemia by EKG criteria. In Recovery heart rate and blood pressure returned to fully normal levels. Nuclear imaging was performed at rest and with stress. Gated analysis reveals normal left ventricular size and systolic function; SPECT analysis reveals no evidence of prior infarct or inducible ischemia. See separate report for more detail. IJuan MD, was present throughout this treadmill/pharmacologic stress study and supervised it in its entirety. Summary: 1) Normal resting EKG. 2) Adequate stress was likely achieved. 3) Mildly hypertensive BP response to pharmacologic agent. 4) No ischemic changes by EKG criteria were seen at peak stress. 5) Nuclear image analysis interpreted as showing normal left ventricular size and function, without clear evidence of prior infarct or inducible ischemia. CONCLUSIONS: 1) The patient experienced his typical exertional dyspnea and chest tightness with slow walking (as observed previously on submaximal ETT), that intensified following Lexiscan administration, but there were no associated EKG or imaging findings to suggest ischemia. Further evaluation of lung function seems a prudent next step. 2) Given patient's description of recent optic nerve embolic stroke and reported atrial fibrillation strong consideration should be given to initiation of anticoagulat therapy in the near future.
--- NOTE | 2021-10-01 10:30 | Nuclear Medicine Report ---
PROCEDURE: Rest and exercise myocardial perfusion SPECT with gated imaging and ejection fraction INDICATIONS: RETINAL VASCULAR OCCLUSION/ NAYELY RADIOPHARMACEUTICAL: 12.0 mCi Tc-99m Myoview IV at rest and 31.5 mCi Tc-99m Myoview IV at peak exerc ise. [id number] was performed. TECHNIQUE: Radiopharmaceutical was injected at peak stress test, and also at rest. SPECT images wer e obtained. SPECT myocardial perfusion images were displayed in short axis, horizontal long axis, an d vertical long axis views. Gated images were reviewed using [employer] software. COMPARISON: None available. FINDINGS: Raw data: There is good myocardial labeling by radiotracer. No significant motion artifacts. Lung- to-heart ratio is 0.23 (normal is less than 0.46 for tetrafosmin tracer). Left ventricle function: Gated images demonstrate normal left ventricle wall thickening. No segment al wall motion abnormality. No transient ischemic dilation; TID is 0.73 (normal less than 1.30). Th e left ventricle resting end-diastolic volume is 45 mL. Left ventricle stress ejection fraction is > 70%; normal values are above 45%. Myocardial perfusion: There is a small, mild, partially reversible perfusion defect in the inferior wall of the left ventricle, which was resolved on prone imaging, consistent with diaphragmatic attenu ation artifact. There is otherwise normal distribution of activity in the left and right ventricular myocardium. IMPRESSION: 1. Normal myocardial perfusion images. 2. Normal left ventricular volume and systolic function. 3. Please correlate with stress EKG result. PQRS ATTESTATIONS: Measure 322 - Is this imaging test primarily performed on a low-risk surgery patient for preoperative evaluation within 30 days preceding their low-risk non-cardiac surgery? Low-risk surgery is defined as cardiac or myocardial infarction less than 1%, including (but not limited to) endoscopic pr ocedures, superficial procedures, cataract surgery, and excisional breast surgery: Answer: No Measure 323 - Is this imaging test performed primarily for the monitoring of an asymptomatic patient who had percutaneous coronary intervention on the visit date or within 2 years of the visit date? An swer: No Measure 324 - Is this imaging test performed primarily for the initial detection and risk assessment on an asymptomatic, low coronary heart disease patient? Low CHD risk definition = clinicians should consider the maximum number of available patient factors used to estimate risk based on Creede (A TP III criteria), typically age, gender, diabetes, smoking status, and use of blood pressure medicati on, and integrate age appropriate estimates for missing elements, such as LDL or standard blood press ure. Answer: No Reviewed by: Danie Martin MD on 10/01/2021 10:28 AM PDT Approved by: Danie Martin MD on 10/01/2021 10:28 AM PDT Station ID: [id number]
== END 2021-09-30 12:11 | disposition home or self-care (01) ==
LOC: DI 12:10
PROVIDERS: ATTEND Student in an Organized Health Care Education/Training Program
DX: H34.9 Unspecified retinal vascular occlusion (principal); I10 Essential (primary) hypertension; R06.09 Other forms of dyspnea; R07.89 Other chest pain
CPT/HCPCS: 78452; 93016; 93017; 93018; A9500; J2785

== ENCOUNTER 2021-11-02 09:07 | Outpatient (CLI) | payer MEDICARE, OTHER ==
--- NOTE | 2021-11-02 12:11 | CT Report ---
PROCEDURE: HEAD WO INDICATIONS: ISCHEMIC OPTIC NEUROPATHY TECHNIQUE: Noncontrast 4.5 mm thick angled axial sections acquired from the foramen magnum to the vertex. For r adiation dose reduction, the following was used: automated exposure control, adjustment of mA and/or kV according to patient size. COMPARISON: 02/02/2019. FINDINGS: Image quality: Excellent. CSF spaces: There is mild cerebral volume loss with prominence of the ventricles and sulci. Basal ci sterns are patent. No extra-axial fluid collections. Brain: No intracranial hemorrhage, mass, or mass effect. Kunz-white matter interface is preserved. T here are subcortical and periventricular white matter hypodensities consistent with mild chronic smal l vessel ischemic changes. Skull and face: Calvarium and visualized facial bones are intact, without suspicious lesions. Sinuses: Visualized sinuses and mastoids are clear. IMPRESSION: 1. No acute intracranial evaluate. 2. Mild chronic white matter vessel skin changes and cerebral volume loss. Reviewed by: Spencer Hernandez MD on 11/02/2021 11:09 AM [facility] Approved by: Spencer Hernandez MD on 11/02/2021 11:09 AM [facility] Station ID: [id number]
== END 2021-11-02 09:08 | disposition home or self-care (01) ==
LOC: DI 09:07
PROVIDERS: ATTEND Student in an Organized Health Care Education/Training Program
DX: I63.9 Cerebral infarction, unspecified (principal); I67.82 Cerebral ischemia